=== PATIENT | male | born 1940 | race Caucasian/White ===

== ENCOUNTER 2017-05-04 11:17 | Observation (INO) | payer OTHER, BC ==
--- NOTE | 2017-05-04 11:47 | PDOC ---
History of Present Illness - General History Source: Patient Exam Limitations: No Limitations - History of Present Illness Initial Comments: 05/04/17 12:06 The patient is a 76 year old male, with a significant past medical history of DM , HTN, CAD s/p CABG who presents to the emergency department with L leg pain and swelling for the past day. Patient reports 4/10 leg pain radiating from L calf to L foot. Patient is unable to walk secondary to pain and presents to the ED for further evaluation. Patient denies chest pain, headache or dizziness. Patient denies fever, chills, abdominal pain, nausea, vomit, diarrhea or constipation. Patient denies dysuria, frequency, urgency or hematuria. Patient denies sick contacts or recent travel. Allergies: NKA Past surgical history: Double CABG in 2006 Social history: Former smoker PCP: Dr. Ayon <Judy Aguilera - Last Filed: 05/04/17 15:39> - General History Source: Patient Exam Limitations: No Limitations <Michelle Fraga - Last Filed: 05/04/17 16:18> - General Stated Complaint: LEFT LEG PAIN Time Seen by Provider: 05/04/17 11:46 Past History <Judy Aguilera - Last Filed: 05/04/17 15:39> - Past Medical History Cardiac Disorders: Yes (2006 DOUBLE CABG) Diabetes: Yes HTN: Yes - Surgical History Cardiac Surgery: Yes (CABG 2006) - Suicide/Smoking/Psychosocial Hx Smoking History: Former smoker Have you smoked in the past 12 months: No Information on smoking cessation initiated: No Hx Alcohol Use: No Drug/Substance Use Hx: No Substance Use Type: None <Michelle Fraga - Last Filed: 05/04/17 16:18> - Past Medical History Allergies/Adverse Reactions: Allergies Allergy/AdvReac Type Severity Reaction Status Date / Time No Known Drug Allergies Allergy Verified 04/12/14 13:37 Home Medications: Ambulatory Orders Unobtainable [Unobtainable] 04/12/14 Review of Systems - Review of Systems Able to Perform ROS?: Yes Comments:: 05/04/17 12:11 GENERAL/CONSTITUTIONAL: No: fever, chills, weakness, loss of appetite. HEAD, EYES, EARS, NOSE AND THROAT: No: change in vision, ear pain, discharge, sore throat, throat swelling. CARDIOVASCULAR: No: chest pain, lightheadedness, palpitations, syncope RESPIRATORY: No: cough, shortness of breath, wheezing, hemoptysis, stridor. GASTROINTESTINAL: No: nausea, vomiting, abdominal cramping, diarrhea, rectal bleeding, constipation. GENITOURINARY: No: dysuria, hematuria, frequency, urgency, flank pain. MUSCULOSKELETAL: +L leg pain and swelling. No: back pain, neck pain, joint pain , muscle swelling or pain. SKIN: No: lesions, pallor, rash or easy bruising. NEUROLOGIC: No: headache, vertigo, paresthesias, weakness ENDOCRINE: No: unexplained weight gain or loss HEMATOLOGIC/LYMPHATIC: No: anemia, easy bleeding, swelling nodes <Judy Aguilera - Last Filed: 05/04/17 15:39> *Physical Exam - Vital Signs Last Vital Signs Temp Pulse Resp BP Pulse Ox 98.4 F 70 16 122/62 98 05/04/17 11:37 05/04/17 11:37 05/04/17 11:37 05/04/17 11:37 05/04/17 11:37 - Physical Exam Comments: 05/04/17 12:11 GENERAL: The patient is in no acute distress. HEAD: Normal with no signs of trauma. EYES: PERRLA, EOMI, sclera anicteric, conjunctiva clear. ENT: Ears normal, nares patent, oropharynx clear without exudates. Moist mucous membranes. NECK: Normal range of motion, supple without lymphadenopathy, JVD, or masses. LUNGS: Breath sounds equal, clear to auscultation bilaterally. No wheezes, and no crackles. HEART:Regular rate and rhythm, normal S1 and S2 without murmur, rub or gallop. ABDOMEN: Soft, nontender, normoactive bowel sounds. No guarding, no rebound. EXTREMITIES: Normal range of motion. No clubbing or cyanosis. No erythema. +LLE edematous. +L calf tenderness. NEUROLOGICAL: Cranial nerves II through XII grossly intact. Normal speech. No focal neurological deficits. MUSCULOSKELETAL: Back nontender to palpation, no CVA tenderness SKIN: Warm, Dry, normal turgor, no rashes or lesions noted. <Judy Aguilera - Last Filed: 05/04/17 15:39> - Vital Signs Last Vital Signs Temp Pulse Resp BP Pulse Ox 98.4 F 70 16 122/62 98 05/04/17 11:37 05/04/17 11:37 05/04/17 11:37 05/04/17 11:37 05/04/17 11:37 <Michelle Fraga - Last Filed: 05/04/17 16:18> ED Treatment Course - LABORATORY CBC & Chemistry Diagram: 05/04/17 12:35 05/04/17 12:35 <WillyJudy bashir - Last Filed: 05/04/17 15:39> - LABORATORY CBC & Chemistry Diagram: 05/04/17 12:35 05/04/17 12:35 <Michelle Fraga - Last Filed: 05/04/17 16:18> Medical Decision Making - Medical Decision Making 05/04/17 15:39 Dr. Ayon paged via phone answering service. <Judy Aguilera - Last Filed: 05/04/17 15:39> - Medical Decision Making 05/04/17 13:59 Mr Parker 76 yo M who presents to the ER via EMS s/p complaint of LLE pain Patient states he has had these symptoms for several days. Jb worsened significantly to the point that he is unable to stand on his leg. Patient has no limitations in range of motion of the knee, hip, ankle. The majority of his pain is located in the calf muscle. Patient denies trauma, heavy lifting. Patient denies prior history of DVT. Patient denies fevers, chills. Patient has noticed swelling of this lower extremity. Patient believes that the skin changes are chronic and have been present for some time On examination: Pt is somnolent, arousable to voice Irregularly irregular, no murmur CTA LLE edema (+) erythema noted (+) skin flaking DD: Cellulitis, DVT, pt has a fib, ? arterial embolism Will do labs Will do Duplex Will do Arterial US Pain management Will re assess 05/04/17 16:16 Laboratory Tests 05/04/17 05/04/17 05/04/17 12:35 12:35 12:35 WBC 6.8 Hgb 15.7 Hct 46.9 Plt Count 203 PT with INR 13.30 H INR 1.18 H Sodium 140 Potassium 3.7 Chloride 99 Carbon Dioxide 29 Anion Gap 12 BUN 11 Creatinine 0.7 Random Glucose 172 H Duplex negative Arterial US negative Pt Skin erythematous, pt has pain in calf ? cellulitis Will place on observation Clinical impression: Cellulitis, initial presentation <Michelle Fraga - Last Filed: 05/04/17 16:18> *DC/Admit/Observation/Transfer - Attestations Scribe Attestion: 05/04/17 12:11 Documentation prepared by Judy Aguilera, acting as medical attendant for Michelle Fraga MD <Judy Aguilera - Last Filed: 05/04/17 15:39> - Discharge Dispostion Admit: Yes <Michelle Fraga - Last Filed: 05/04/17 16:18> Diagnosis at time of Disposition: Cellulitis Qualifiers: Site of cellulitis: unspecified site Qualified Code(s): L03.90 - Cellulitis, unspecified - Discharge Dispostion Condition at time of disposition: Stable - Referrals Referrals: Petra Ayon MD [Primary Care Provider] - - Patient Instructions - Post Discharge Activity
[2017-05-04] MEDS ORDERED: METHOCARBAMOL 500 MG TABLET PO ONE (12:02)
[2017-05-04] MEDS ORDERED: IBUPROFEN 600 MG TABLET (FP) PO ONE ×2 (12:02→12:23)
[2017-05-04] MEDS ORDERED: METHOCARBAMOL 500 MG TABLET ONE (12:22)
[2017-05-04 12:47] LABS: EOS % 0.9 % (0-4.5); HEMATOCRIT 46.9 % (35.4-49); HEMOGLOBIN 15.7 GM/dL (11.7-16.9); LYMPH % 17.5 % (8-40); MCHC 33.4 g/dl (32.0-35.9); MEAN CELL VOLUME 83.8 fl (80-96); MEAN PLT VOLUME 9.7 fl (7.5-11.1); MONO % 10.7 % (3.8-10.2); NEUT % 69.9 % (42.8-82.8); PLATELET COUNT 203 K/MM3 (134-434); RDW 14.7 % (11.9-15.9); WHITE BLOOD COUNT 6.8 K/mm3 (4.0-10.0)
[2017-05-04 13:03] LABS: INR 1.18 (0.82-1.09); PROTHROMBIN TIME (PATIENT) 13.3 SEC (9.98-11.88)
[2017-05-04 13:22] LABS: ANION GAP 12 (8-16); BLOOD UREA NITROGEN 11 mg/dL (7-18); CALCIUM 8.3 mg/dL (8.5-10.1); CHLORIDE 99 mmol/L (98-107); CO2 29 mmol/L (21-32); GLUCOSE,RANDOM 172 mg/dL (74-106); POTASSIUM 3.7 mmol/L (3.5-5.1); SODIUM 140 mmol/L (136-145)
[2017-05-04 13:25] LABS: ALK PHOS 113 U/L (45-117); CREATININE 0.7 mg/dL (0.7-1.3); SGOT/AST 21 U/L (15-37); SGPT/ALT 24 U/L (12-78); TOT PROT 6.6 g/dl (6.4-8.2)
[2017-05-04] MEDS ORDERED: CEFAZOLIN 1 GM in DEXTROSE 5%-WATER - 50 ML IVPB ONE (16:17)
[2017-05-04] MEDS ORDERED: CEFAZOLIN 1 GM PUSH 1 GM/10 ML DISP.SYRIN IVPUSH ONE (16:22)
[2017-05-04] MEDS ORDERED: ACETAMINOPHEN 325 MG TABLET (FP) PO ONE (21:00)
[2017-05-04 21:36] VITALS: BMI 29.0
[2017-05-05 10:26] VITALS: BP 137/99; PULSE 76; TEMP 99
--- NOTE | 2017-05-05 10:54 | HP ---
Admitting History and Physical - Primary Care Physician PCP: Petra Ayon - Admission Chief Complaint: left foot pain History of Present Illness: The patient is a 76 year old male, with a significant past medical history of DM , HTN, CAD s/p CABG who presents to the emergency department with L leg pain and swelling for the past day. Patient reports 4/10 leg pain radiating from L calf to L foot. Patient is unable to walk secondary to pain and presents to the ED for further evaluation. Patient denies chest pain, headache or dizziness. Patient denies fever, chills, abdominal pain, nausea, vomit, diarrhea or constipation. Patient denies dysuria, frequency, urgency or hematuria. Patient denies sick contacts or recent travel. Wants to go home, Chronic LLE pain, was worried that his foot didn't look right so came in to the ER. Pedal pulses intact. Chronic discoloration BLLE---> 2/2 PVD? Denies pain at this time. Takes aspirin or Aleve for pain at home. Has never seen orthopedist or had Physical therapy. History Source: Patient Limitations to Obtaining History: No Limitations - Smoking History Smoking history: Former smoker Have you smoked in the past 12 months: No - Alcohol/Substance Use Hx Alcohol Use: No Home Medications - Allergies Allergies/Adverse Reactions: Allergies Allergy/AdvReac Type Severity Reaction Status Date / Time No Known Drug Allergies Allergy Verified 04/12/14 13:37 - Home Medications Home Medications: Ambulatory Orders Unobtainable [Unobtainable] 04/12/14 Physical Examination Vital Signs: Vital Signs Temperature 99 F 05/05/17 09:00 Pulse Rate 76 05/05/17 09:00 Respiratory Rate 20 05/05/17 09:00 Blood Pressure 137/99 05/05/17 09:00 O2 Sat by Pulse Oximetry (%) 98 05/04/17 16:56 Constitutional: Yes: Well Nourished, No Distress, Calm Cardiovascular: Yes: Regular Rate and Rhythm Respiratory: Yes: Regular Gastrointestinal: Yes: Normal Bowel Sounds, Soft Musculoskeletal: Yes: WNL Extremities: Yes: Other (BLLE discoloration 2/2 to PVD) Edema: Yes Edema: LLE: 1+, RLE: 1+ Peripheral Pulses WNL: Yes Neurological: Yes: Alert, Oriented Psychiatric: Yes: Alert, Oriented Labs: CBC, BMP 05/04/17 12:35 05/04/17 12:35 Imaging - Results X-ray: Report Reviewed Ultrasound: Report Reviewed Problem List - Problems (1) Left foot pain Assessment/Plan: -Vascular studies unremarkable -Foot Xray negative -preliminary tibial Xray looks negative -walks with cane -aleve 2 cap BID PRN with food -f/u outpatient with PCP and ortho. -Physical therapy Code(s): M79.672 - PAIN IN LEFT FOOT Assessment/Plan see problem list
--- NOTE | 2017-05-05 11:52 | DS ---
Physical Examination Vital Signs: Vital Signs Temperature 99 F 05/05/17 09:00 Pulse Rate 76 05/05/17 09:00 Respiratory Rate 20 05/05/17 09:00 Blood Pressure 137/99 05/05/17 09:00 O2 Sat by Pulse Oximetry (%) 98 05/04/17 16:56 Constitutional: Yes: Well Nourished, No Distress, Calm Cardiovascular: Yes: Regular Rate and Rhythm Respiratory: Yes: Regular Gastrointestinal: Yes: Normal Bowel Sounds, Soft Musculoskeletal: Yes: Joint Swelling (chronic Left LE swelling) Extremities: Yes: WNL Edema: Yes Edema: LLE: 1+ Peripheral Pulses WNL: Yes Integumentary: Yes: Venous Stasis Changes (BLLE skin discoloration) Neurological: Yes: Alert, Oriented Psychiatric: Yes: Alert, Oriented Labs: CBC, BMP 05/04/17 12:35 05/04/17 12:35 Discharge Summary Reason For Visit: CELLULITIS Current Active Problems Cellulitis (Acute) Hospital Course: The patient is a 76 year old male, with a significant past medical history of DM , HTN, CAD s/p CABG who presents to the emergency department with L leg pain and swelling for the past day. Patient reports 4/10 leg pain radiating from L calf to L foot. Patient is unable to walk secondary to pain and presents to the ED for further evaluation. Patient denies chest pain, headache or dizziness. Patient denies fever, chills, abdominal pain, nausea, vomit, diarrhea or constipation. Patient denies dysuria, frequency, urgency or hematuria. Patient denies sick contacts or recent travel. Upon evaluation venous and arterial, foot Xray was negative. Condition: Stable - Instructions Referrals: Petra Ayon MD [Primary Care Provider] - Disposition: HOME - Home Medications Comprehensive Discharge Medication List: Ambulatory Orders Unobtainable [Unobtainable] 04/12/14
--- NOTE | 2017-05-05 13:45 | CONS ---
PHYSICAL MEDICINE REHABILITATION CONSULTATION DATE OF CONSULTATION: 05/05/2017 REFERRING PHYSICIAN: Dr. Pacheco HISTORY OF PRESENT ILLNESS: The patient is a 76-year-old man who has an extensive past medical history including diabetes, hypertension, coronary artery disease status post coronary artery bypass graft and chronic venous stasis changes in the lower extremities, who was admitted with difficulty walking and pain in the left ankle. Patient states he developed abrupt onset of pain without any trauma. The pain was worse with weightbearing. He underwent duplexes of bilateral lower extremities, which were negative for DVT. He also underwent x-rays of the left foot, which showed calcaneal spurring; bunion formation, 1st MTP, but no acute pathology. No blastic or lytic changes. Patient also underwent blood work in the emergency department. He had a normal CBC, WBC of 16.8, hemoglobin 15.7, and platelet count 203. INR slightly elevated at 1.18, and chemistry showed elevated random glucose 172, low albumin of 3.0, calcium level borderline at 8.3 but corrects to his albumin level. Otherwise, his chemistry was normal. Sodium 140, potassium 3.7, chloride 99, carbon dioxide 29, BUN 11, creatinine 0.7, creatinine clearance greater than 60, AST 21, ALT 24, and alkaline phosphatase 113. Total protein was normal at 6.6. Patient has no new numbness, tingling. No back pain and again no trauma. He notes discoloration and swelling, but this is chronic and appears in both of his lower extremities. PAST MEDICAL AND SURGICAL HISTORY: Diabetes (he is uncertain whether he has diabetic peripheral neuropathy), hypertension, coronary artery disease, coronary artery bypass graft. SOCIAL HISTORY: Former tobacco user. Ambulates with a straight cane. REVIEW OF SYSTEMS: No lightheadedness, dizziness, blurry vision, double vision, chest pain, shortness of breath. He occasionally has numbness and tingling in his upper extremities. No other joint arthralgias. No fever or chills. Again, discoloration which is chronic in both lower extremities and some swelling in both lower extremities which is chronic. No significant weight change. PHYSICAL EXAMINATION: General: Patient is an overweight man seen sitting at the edge of the bed. He is in no acute distress. HEENT: Normocephalic and atraumatic. Extraocular muscles appear intact. Neck: Supple. Extremities: He has dysvascular changes, hyperpigmentation from just below the knee into the ankle and foot. He has some edema distally in the lower extremities, trace to +1. No other generalized rash. Neuromuscular: He is awake, alert, oriented x3. Cranial nerves 2-12 grossly intact. He has fairly good strength and range in the upper extremities with some arthritic changes in the hands, which is not limiting. Slightly diminished sensation, more in a median than ulnar distribution and thenar weakness bilaterally. He also has slightly diminished sensation distally in the feet to light touch and normal more proximally. He has tenderness in the left Achilles tendon, which is focal. None on the right side and no other tenderness in the ankle. Limited range of motion due to some mild discomfort. Good range of motion and strength more proximally. OVERALL IMPRESSION: 1. Gait disorder. 2. Left ankle pain consistent with Achilles tendinopathy. 3. Chronic venous stasis changes in bilateral lower extremities. 4. Rule out diabetic peripheral neuropathy. 5. Numbness and tingling in the upper extremities consistent with carpal tunnel syndrome. 6. History of diabetes. 7. History of hypertension. 8. Coronary artery disease status post coronary artery bypass graft. 9. Elevated body mass index. 10. Former tobacco user. 11. Hypoalbuminemia. PLAN/SUGGESTION: 1. We will have Physical Therapy see the patient prior to discharge if possible to make sure he is stable. 2. I have recommended a heel lift when he gets home or using a high-heel shoe or a boot to take pressure off the Achilles. 3. Would follow up as an outpatient for outpatient physical therapy. 4. Would consider EMG of lower extremities to assess for diabetic peripheral neuropathy. 5. Consider EMG of upper extremities to assess for carpal tunnel syndrome. 6. If positive for carpal tunnel syndrome, would consider night splinting. 7. Could consider anti-inflammatory usually, but he has a history of hypertension and coronary artery disease. Would not recommend any anti-inflammatories. Would stick to Tylenol for pain. Thank you very much for this referral. LUIS ANGEL CANDELARIA M.D. [facility]/[id number]
== END 2017-05-05 15:40 | disposition home health service (06) ==
LOC: JER 11:17 → JERBED 16:18 → J6S 18:55
PROVIDERS: ADMIT Family Medicine; ATTEND Family Medicine
DX: L03.116 Cellulitis of left lower limb (principal); I10 Essential (primary) hypertension; E11.9 Type 2 diabetes mellitus without complications; I25.10 Atherosclerotic heart disease of native coronary artery without angina pectoris; Z95.1 Presence of aortocoronary bypass graft
CPT/HCPCS: 36415; 73590-TC-LT-FY; 73630-TC-LT; 80053; 85025; 85610; 85730; 87040; 93925-TC; 93970-TC; 96365; 97116-GP; 97161-GP; 99283-25; G0378

== ENCOUNTER 2017-05-07 18:02 | Inpatient (IN) | payer OTHER, BC ==
--- NOTE | 2017-05-07 18:50 | PDOC ---
History of Present Illness - General Chief Complaint: Pain, Acute Stated Complaint: LEG PAIN Time Seen by Provider: 05/07/17 18:13 History Source: Patient Exam Limitations: No Limitations - History of Present Illness Initial Comments: 05/07/17 18:47 76 y/o M with PMH asthma, DM, HTN, CAD s/p CABG, ?chronic venous stasis, recent dx for LLE pain (-DVT, - art doppler, was sent home with ortho, PCP follow up) who presents to the ED c/o LLE edema over the past week. As per pt, last week, he noticed increased edema in his L calf. It caused constant pain so severe, that he had trouble ambulating. Over the last three days, he noticed increased erythema in his calf region, as well as dull pain. He denied any spread of erythema, or burning in the region, stating he had just "become more aware of his leg." During this time, he also endorsed blisters, and desquamation near his ankle. Otherwise, pt denies ARGUETA, fever, chills, SOB, abdominal pain, recent infection, or changes in urinary or bowel function. He also denies recent immobilizations, hx clot, recent surgeries. PMH: as above PsxH: s/p CABG (2007) meds: as in chart allergies: NKDA FH: father- lung issues SH: [place] [phone]. Subsequently worked in [employer], [employer] [place] [id number]. Ambulates with a cane at baseline. Smoked cigarettes for 4 years total in s - had smoked 3 packs/day during that time. "Moderate alcohol" intake 1-2 beers /day. Smoked marijuana "intermittently" in past Past History - Past Medical History Allergies/Adverse Reactions: Allergies Allergy/AdvReac Type Severity Reaction Status Date / Time No Known Drug Allergies Allergy Verified 05/07/17 18:17 Home Medications: Ambulatory Orders Albuterol Sulfate Inhaler - [Ventolin Hfa Inhaler -] 2 inh PO Q4H PRN 05/07/17 Amoxicillin/Potassium Clav [Augmentin 875-125 Tablet] 1 each PO DAILY 05/07/17 Apixaban [Eliquis] 5 mg PO DAILY 05/07/17 Duloxetine HCl [Cymbalta] 30 mg PO BID 05/07/17 Empagliflozin [Jardiance] 10 mg PO DAILY 05/07/17 Fluticasone Propionate [Flovent Hfa] 220 mcg IH BID 05/07/17 Furosemide [Lasix] 40 mg PO DAILY 05/07/17 Metoprolol Succinate [Toprol Xl] 50 mg PO DAILY 05/07/17 Tadalafil [Cialis] 5 mg PO PRN 05/07/17 Cardiac Disorders: Yes (2006 DOUBLE CABG) COPD: No Diabetes: Yes HTN: Yes - Surgical History Cardiac Surgery: Yes (CABG 2006) - Immunization History Immunization Up to Date: Yes - Suicide/Smoking/Psychosocial Hx Smoking History: Never smoked Have you smoked in the past 12 months: No Information on smoking cessation initiated: No Hx Alcohol Use: No Drug/Substance Use Hx: No Substance Use Type: None Review of Systems - Review of Systems Able to Perform ROS?: Yes Is the patient limited Swedish proficient: No Musculoskeletal: Yes: Muscle Pain, Other (LLE edema, erythema ) All Other Systems: Reviewed and Negative *Physical Exam - Vital Signs Last Vital Signs Temp Pulse Resp BP Pulse Ox 98.7 F 68 12 122/57 96 05/07/17 18:02 05/07/17 18:23 05/07/17 18:02 05/07/17 18:02 05/07/17 18:23 - Physical Exam General Appearance: Yes: Nourished, Obese HEENT: positive: EOMI, ADRIENNE Neck: positive: Supple Respiratory/Chest: positive: Lungs Clear, Other (poor inspiratory effort ) Cardiovascular: positive: Regular Rhythm, Regular Rate, S1, S2 Vascular Pulses: Dorsalis-Pedis (R): 1+, Doralis-Pedis (L): 1+ Gastrointestinal/Abdominal: positive: Normal Bowel Sounds, Soft Extremity: positive: Other ((+) LLE edema and erythema - calf, with desquamation near ankle) Integumentary: positive: Normal Color Neurologic: positive: heel seat trimmer II-XII NML intact ED Treatment Course - LABORATORY CBC & Chemistry Diagram: 05/07/17 19:40 05/07/17 19:40 Medical Decision Making - Medical Decision Making 05/07/17 19:49 76 y/o M with PMH asthma, DM, HTN, CAD s/p CABG, ?chronic venous stasis, recent dx for LLE pain (-DVT, - art doppler, was sent home with ortho, PCP follow up) who presents to the ED c/o LLE edema over the past week. Pt with likely cellulitis - will give 1 dose vancomycin (1500 mg ) x 1 d/t loading dose. Will also do general labs CBC, CMP, and repeat duplex LLE as increased edema and erythema, difficulty with weight bearing. Will also send blood cx. Pt currently afebrile. Will reassess once labs and tests return 05/07/17 20:40 without white count elevated BG - will do ISS 05/07/17 20:41 will also give boosterix d/t R knee abrasion 05/07/17 20:42 duplex pending 05/07/17 21:09 for med-surg obs Dr. Montalvo *DC/Admit/Observation/Transfer Diagnosis at time of Disposition: Cellulitis Qualifiers: Site of cellulitis: other site Qualified Code(s): L03.818 - Cellulitis of other sites - Discharge Dispostion Condition at time of disposition: Guarded Admit: Yes - Referrals Referrals: Petra Ayon MD [Primary Care Provider] - - Patient Instructions - Post Discharge Activity
[2017-05-07] MEDS ORDERED: DIPHTH,PERTUSS(ACELL),TET 0.5 ML DISP.SYRIN IM ONE (19:34)
[2017-05-07] MEDS ORDERED: VANCOMYCIN 1,500 MG in DEXTROSE 5%-WATER - 500 ML IVPB ONE (19:35)
--- NOTE | 2017-05-07 19:42 | PDOC ---
Attending Attestation - Resident Resident Name: MilviaRowena - ED Attending Attestation I have performed the following: I have examined & evaluated the patient, The case was reviewed & discussed with the resident, I agree w/resident's findings & plan, Exceptions are as noted - Medical Decision Making 05/07/17 19:40 I, Dr. Amber Gillis, DO, attest that this document has been prepared under my direction and personally reviewed by me in its entirety. I further attest, that it accurately reflects all work, treatment, procedures and medical decision -making performed by me. 05/07/17 19:40 76yo male with LLE redness/tenderness/warmth -will repeat ultrasound, however suspect cellulitis with desquamation of skin -will send labs, cultures -will start vanco given hx of dm -will need admission -discussed plan with the patient who agrees with the plan 05/07/17 21:[address] Montalvo who accepts pt to service <Amber Gillis - Last Filed: 05/07/17 21:18> - HPI HPI: 05/08/17 01:23 Patient is a 76 year old male with a significant past medical history of Asthma , Chronic Venous stasis, DM, HTN, CAD s/p CABG, who presents to the ED with complaints of lower left extremity pain that began earlier this week. Patient reports experiencing left lower leg pain as well as associated redness prompting him to come in to the ED for further evaluation. He reports getting a doppler and arterial doppler on his left lower leg with both test results being negative. Patient reports experiencing increased edema in his lower extremities as well a dull constant pain in his left leg. He reports being unable to walk secondary to pain, as well as increased erythema of his legs over the last 3 days. Denies chest pain, Sob. Denies nausea, vomiting. Denies dysuria, hematuria. Denies constipation, diarrhea. Denies trauma to affected area. Denies any other symptoms. Allergies: None Social history: Surgical history: PMD: Dr. Ayon - Physicial Exam PE: 05/08/17 01:23 GENERAL: Awake, alert, and fully oriented, in no acute distress HEAD: No signs of trauma EYES: PERRLA, EOMI, sclera anicteric, conjunctiva clear ENT: Auricles normal inspection, hearing grossly normal, nares patent, oropharynx clear without exudates. Moist mucosa NECK: Normal ROM, supple, no lymphadenopathy, JVD, or masses LUNGS: Breath sounds equal, clear to auscultation bilaterally. No wheezes, and no crackles HEART: Regular rate and rhythm, normal S1 and S2, no murmurs, rubs or gallops ABDOMEN: Soft, nontender, normoactive bowel sounds. No guarding, no rebound. No masses EXTREMITIES: +Left Knee to toes red, swollen, erythematous with 2+ pitting edema. +Hot to touch. +Desquamation of lower leg and foot. + pulses intact. +Right knee had two abrasions No active bleeding Normal range of motion, no edema. No cords, or tenderness NEUROLOGICAL: Cranial nerves II through XII grossly intact. Normal speech, SKIN: Warm, Dry, no rashes or lesions noted. - Medical Decision Making 05/08/17 01:23 Documentation prepared by Chele Sorto, acting as medical technologist chemistry for Amber Gillis DO, MD/. <Chele Sorto - Last Filed: 05/08/17 01:23> Heart Score/ECG Review - ECG Intrepretation Comment:: 05/07/17 21:19 sinus tach at 105, lbbb, l axis, abnl ekg <Amber Gillis - Last Filed: 05/07/17 21:18>
[2017-05-07 19:52] LABS: BASO % 0.9 % (0-2.0); EOS % 0.7 % (0-4.5); HEMOGLOBIN 15.3 GM/dL (11.7-16.9); LYMPH % 14.5 % (8-40); MCH 27.5 pg (25.7-33.7); MCHC 32.6 g/dl (32.0-35.9); MEAN CELL VOLUME 84.3 fl (80-96); MEAN PLT VOLUME 10.6 fl (7.5-11.1); MONO % 8.1 % (3.8-10.2); NEUT % 75.8 % (42.8-82.8); PLATELET COUNT 193 K/MM3 (134-434); RBC 5.57 M/mm3 (4.00-5.60); RDW 15.3 % (11.9-15.9); WHITE BLOOD COUNT 7.7 K/mm3 (4.0-10.0)
[2017-05-07 20:21] LABS: ALBUMIN 3.1 g/dl (3.4-5.0); ALK PHOS 121 U/L (45-117); ANION GAP 9 (8-16); BILIRUBIN,TOTAL 0.8 mg/dL (0.2-1.0); BLOOD UREA NITROGEN 14 mg/dL (7-18); CALCIUM 8.4 mg/dL (8.5-10.1); CHLORIDE 100 mmol/L (98-107); CO2 27 mmol/L (21-32); CREATININE 0.9 mg/dL (0.7-1.3); GLUCOSE,RANDOM 264 mg/dL (74-106); SGPT/ALT 32 U/L (12-78); SODIUM 136 mmol/L (136-145); TOT PROT 6.5 g/dl (6.4-8.2)
[2017-05-07 20:22] LABS: POTASSIUM 4.5 mmol/L (3.5-5.1); SGOT/AST 30 U/L (15-37)
[2017-05-07 20:45] LABS: PLATELET ESTIMATE ADEQUATE
[2017-05-07] MEDS: INSULIN SLIDING SCALE (NOVOLOG) 1 VIAL SQ SCH (22:19)
[2017-05-07] MEDS ORDERED: INSULIN (NOVOLOG) ASPART 100 UNITS/ML 10ML VIAL ONE (22:49)
--- NOTE | 2017-05-07 23:42 | HP ---
CHIEF COMPLAINT:LLE pain and swelling x4 days PCP: HISTORY OF PRESENT ILLNESS: Pt is a 76 y/o M with PMHx asthma, DM, HTN, CAD s/p CABG, chronic venous stasis, recently seen in ED 05/07/ LLE pain (-DVT, - art doppler, to see ortho, PCP follow up, with augmentin-never picked up). Now presenting with worsening LLE pain and swelling. Inability to bear weight on LLE because of pain although pt describes the pain sensation as 2/10, "troubling ", absent pins and needle sensation. He denies fevers, chills, trauma, discharge , bug or animal bites. Pt reports a previous L ankle blister about a week ago that disappeared on its own followed by the pain then swelling. Pt denies loss of sensation or unstable gait, walks mostly without but occasionally with a cane. Lives at home with independent ADLs and cares for disabled . For the past week however has been unable to bear weight on the leg to tack picker the antibiotic last prescribed. Pt says his sugar is controlled between 120-150 on 80u long-acting insulin (could not be verified). Last A1c last year said to be 7. Pt denies pins and needles sensation, chest pain, cough. He has occasional SOB, but no PND, or orthopnea. No dysuria or change in bowel habit. He does not follow with a skid adzer. His last eye follow up was said to be last year. ER course was notable for: (1) EKG- sinus rhythm, 1st degree AV block with occ PVCs, LAD, LBBB (2) Vanco 2g (3) [id number], CMP, CBC, bld cx-pending Recent Travel: None PAST MEDICAL HISTORY: asthma, DM, HTN, CAD s/p CABG chronic venous stasis PAST SURGICAL HISTORY: CABG- Social History: Smoking: Former-stopped over 30 years ago Alcohol: Drugs: Family History: Allergies No Known Drug Allergies Allergy (Verified 05/07/17 18:17) HOME MEDICATIONS: Home Medications Medication Instructions Recorded Albuterol Sulfate Inhaler - 2 inh PO Q4H PRN 05/07/17 [Ventolin Hfa Inhaler -] Amoxicillin/Potassium Clav 1 each PO DAILY 05/07/17 [Augmentin 875-125 Tablet] Apixaban [Eliquis] 5 mg PO DAILY 05/07/17 Duloxetine HCl [Cymbalta] 30 mg PO BID 05/07/17 Empagliflozin [Jardiance] 10 mg PO DAILY 05/07/17 Fluticasone Propionate [Flovent 220 mcg IH BID 05/07/17 Hfa] Furosemide [Lasix] 40 mg PO DAILY 05/07/17 Metoprolol Succinate [Toprol Xl] 50 mg PO DAILY 05/07/17 Tadalafil [Cialis] 5 mg PO PRN 05/07/17 REVIEW OF SYSTEMS CONSTITUTIONAL: Absent: fever, chills, diaphoresis, generalized weakness, malaise, loss of appetite, weight change HEENT: Absent: rhinorrhea, nasal congestion, throat pain, throat swelling, difficulty swallowing, mouth swelling, ear pain, eye pain, visual changes CARDIOVASCULAR: Absent: chest pain, syncope, palpitations, irregular heart rate, lightheadedness , peripheral edema RESPIRATORY: Absent: cough, shortness of breath, dyspnea with exertion, orthopnea, wheezing, stridor, hemoptysis GASTROINTESTINAL: Absent: abdominal pain, abdominal distension, nausea, vomiting, diarrhea, constipation, melena, hematochezia GENITOURINARY: Absent: dysuria, frequency, urgency, hesitancy, hematuria, flank pain, genital pain MUSCULOSKELETAL: Absent: myalgia, arthralgia, joint swelling, back pain, neck pain SKIN: Absent: rash, itching, pallor HEMATOLOGIC/IMMUNOLOGIC: Absent: easy bleeding, easy bruising, lymphadenopathy, frequent infections ENDOCRINE: Absent: unexplained weight gain, unexplained weight loss, heat intolerance, cold intolerance NEUROLOGIC: Absent: headache, focal weakness or paresthesias, dizziness, unsteady gait, seizure, mental status changes, bladder or bowel incontinence PSYCHIATRIC: Absent: anxiety, depression, suicidal or homicidal ideation, hallucinations. PHYSICAL EXAMINATION Vital Signs - 24 hr 05/07/17 05/07/17 05/07/17 18:02 18:23 20:15 Temperature 98.7 F Pulse Rate 98 H 68 Respiratory 12 Rate Blood Pressure 122/57 O2 Sat by Pulse 98 96 97 Oximetry (%) GENERAL: Obese, Awake, alert, and fully oriented, in no acute distress. HEAD: Normal with no signs of trauma. EYES: Pupils equal, round and reactive to light, extraocular movements intact, sclera anicteric, conjunctiva clear. EARS, NOSE, THROAT: Ears normal, nares patent, oropharynx clear without exudates. Moist mucous membranes. NECK: Normal range of motion, supple without lymphadenopathy, JVD, or masses. LUNGS: Stenotomy scar mid chest. Breath sounds equal, clear to auscultation bilaterally. No wheezes, and no crackles. HEART: Regular rate and rhythm, normal S1 and S2 without murmur, rub or gallop. ABDOMEN: Soft, nontender, obese, normoactive bowel sounds, no guarding, no rebound, no masses. No hepatomegaly or splenomegaly. MUSCULOSKELETAL: Able to lift all limbs against gravity. Normal tone. Altered touch sensation R>L LE (unable to discriminate actual toes touched) UPPER EXTREMITIES: 2+ pulses, warm, well-perfused. No cyanosis. No clubbing. No peripheral edema. LOWER EXTREMITIES: 2+ DP pulses bilaterally, warm, well-perfused. Bilateral peripheral edema. Dry scaly skin on both LE. R Knee scrape. LLE-Sloughing old dry skin. Mild erythema and slightly increased warmth from ankle to calf. Negative Nakul's sign. NEUROLOGICAL: No facial droop, able to move all limbs. Normal speech. Gait not observed. PSYCHIATRIC: Cooperative. Good eye contact. Laboratory Results - last 24 hr 05/07/17 05/07/17 19:40 19:40 WBC 7.7 RBC 5.57 Hgb 15.3 Hct 47.0 MCV 84.3 MCH 27.5 MCHC 32.6 RDW 15.3 Plt Count 193 MPV 10.6 Neutrophils % 75.8 Lymphocytes % 14.5 Monocytes % 8.1 Eosinophils % 0.7 Basophils % 0.9 Platelet Estimate Adequate Platelet Comment Sodium 136 Potassium 4.5 D Chloride 100 Carbon Dioxide 27 Anion Gap 9 BUN 14 D Creatinine 0.9 D Creat Clearance w eGFR > 60 Random Glucose 264 H D Calcium 8.4 L Total Bilirubin 0.8 AST 30 D ALT 32 D Alkaline Phosphatase 121 H Total Protein 6.5 Albumin 3.1 L ASSESSMENT/PLAN: Pt is a 76 y/o M with PMHx asthma, DM, HTN, CAD s/p CABG, chronic venous stasis , recently seen in ED 05/07/ LLE pain, now presenting with worsening LLE pain and swelling LLE pain and swelling: R/O early LLE cellulitis in back ground of chronic venous stasis R/o DVT Extremely dry skin Altered sensation Hyperglycemia Received vancomycin 2g in ED, cont ID consult- Add ceftriaxone 2g daily Production Honing 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 Operator consult- Dr Oconnell Diabetic education Skin moisturizer-Eucerin Did not tack picker last prescribed augmentin Duplex LLE Leg elevation Pending bld cx CBC DM with hyperglycemia: ISS-ACHS BGM-ACHS HgbA1c Verify home meds Diabetes education Diabetes foot care Bilateral Pedal edema: R/O HF Unclear hx of SOB Hx of CABG, poor follow up hx CXR ECHO Cardiology consult SOB: Hx of asthma Ventolin inh Oxygen as needed- 2L NC R/O HF HTN: Home meds difficult to confirm Likely toprol 50mg (1/2 tab daily) Lisinopril / HCTz- 20/12.5 CAD s/p CABG: ASA 81 mg daily Eliquis 5mg daily Lipid panel Atorvastatin 40mg PO HS FEN: No fluids indicated at this time Monitor lytes and replete as needed Sodium restricted diet PPX: Eliquis 5mg daily Dispo: Tele Visit type - Emergency Visit Emergency Visit: Yes ED Registration Date: 05/07/17 Care time: The patient presented to the Emergency Department on the above date and was hospitalized for further evaluation of their emergent condition. - New Patient This patient is new to me today: Yes Date on this admission: 05/09/17 - Critical Care Critical Care patient: No Hospitalist Screening - Colonoscopy Questionnaire Colonoscopy Questionnaire: Colonoscopy Questionnaire - Patient: 50 - 75 years old and never had a screening colonoscopy: Yes History of colon or rectal polyps, or CA: Unknown History of IBD, Crohn's disease or UC: Unknown History of abdominal radiation therapy as a child: Unknown - Relative: 1 with colon or rectal CA, or polyps at age 60 or younger: Unknown Colon or rectal CA diagnosed at age 45 or younger: Unknown Multiple relatives with colon or rectal CA: Unknown - Outcome: Screening Result: Positive Screen
--- NOTE | 2017-05-07 23:50 | PN ---
Teaching Attending Note Name of Resident: Arely Judge ATTENDING PHYSICIAN STATEMENT I saw and evaluated the patient. Chart , data reviewed. I reviewed the resident's note and discussed the case with the resident. I agree with the resident's findings and plan as documented. SUBJECTIVE: 76 y/o M with PMHx asthma, uncontrolled DM, HTN, CAD s/p CABG, chronic venous stasis, recently seen in ED 05/07/ LLE pain and dvt was r/o by doppler U/S. Patient was prescribed oral antibiotic which he did not take. Returns now with about 2 days of lower ext erythema more so involving left lower ext. He reports some scratches on his legs. No insect or animal bites. No blunt trauma. Unable to ambulate currently. Patient states his FS is controlled at home however, his glucose in ER was 264. In ER, blood cultures were drawn and he received vancomycin IV. OBJECTIVE: b/l Last Vital Signs Temp Pulse Resp BP Pulse Ox 98.7 F 68 12 122/57 97 05/07/17 18:02 05/07/17 18:23 05/07/17 18:02 05/07/17 18:02 05/07/17 20:15 general -nad, aoaox3, comfortable heent- at, nc, moist oral mucosa neck -no jvd noted cv-s1+s2+ rrr chest- cta b/l abdomen -obese, soft, nt ext -lower extremity pedal edema 2+ b/l Skin- dry, flaky skin on lower ext b/l, erythema L>R, cellulitis superimposed on venous stasis changes, sensation to feet on gross touch examination Abnormal Lab Results 05/07/17 19:40 Random Glucose 264 H D Calcium 8.4 L Alkaline Phosphatase 121 H Albumin 3.1 L ASSESSMENT AND PLAN: #76yo man with uncontrolled DM and 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 -blood cultures x2 -vancomycin 1.5g iv q12hrs -ceftriaxone 2g IV q24hrs -lower ext duplex to r/o dvt -ID consult for antibiotic approval -leg elevation b/l -compression stockings -skin moisturizer -podiatry evaluation -bed rest, fall precautions -PT evaluation #Uncontrolled DM -tight insulin sliding scale -basal insulin -send a1c and lipid panel -microalbumin in urine -childbirth educator -ASA -statin -diabetic diet #CAD - s/p CABG, now asymptomatic -echo (r/o chf as patient has pedal edema b/l) -EKG -ASA -DVT ppx -heparin sc
[2017-05-08 01:20] VITALS: BMI 30.6
[2017-05-08] MEDS: DULoxetine HCL 30 MG CAPSULE.DR (FP) PO SCH ×3 (01:36→21:04)
[2017-05-08] MEDS ORDERED: INSULIN (NOVOLOG) ASPART 100 UNITS/ML 10ML VIAL ONE (05:48)
[2017-05-08] MEDS: INSULIN SLIDING SCALE (NOVOLOG) 1 VIAL SQ SCH ×4 (06:12→21:05)
[2017-05-08 07:26] LABS: EOS % 1.4 % (0-4.5); HEMATOCRIT 42.5 % (35.4-49); HEMOGLOBIN 14.3 GM/dL (11.7-16.9); LYMPH % 20.3 % (8-40); MCH 28.1 pg (25.7-33.7); MCHC 33.6 g/dl (32.0-35.9); MEAN CELL VOLUME 83.7 fl (80-96); MEAN PLT VOLUME 10.7 fl (7.5-11.1); MONO % 7.9 % (3.8-10.2); NEUT % 69.4 % (42.8-82.8); PLATELET COUNT 180 K/MM3 (134-434); RBC 5.07 M/mm3 (4.00-5.60); RDW 15.2 % (11.9-15.9); WHITE BLOOD COUNT 7.9 K/mm3 (4.0-10.0)
[2017-05-08 08:04] LABS: ALBUMIN 2.7 g/dl (3.4-5.0); ALK PHOS 108 U/L (45-117); ANION GAP 12 (8-16); BILIRUBIN,TOTAL 1.1 mg/dL (0.2-1.0); BLOOD UREA NITROGEN 11 mg/dL (7-18); CALCIUM 7.9 mg/dL (8.5-10.1); CHLORIDE 103 mmol/L (98-107); CO2 23 mmol/L (21-32); CREATININE 0.6 mg/dL (0.7-1.3); GLUCOSE,RANDOM 101 mg/dL (74-106); PHOSPHOROUS 2.4 mg/dL (2.5-4.9); SGPT/ALT 31 U/L (12-78); SODIUM 138 mmol/L (136-145); TOT PROT 5.8 g/dl (6.4-8.2)
[2017-05-08 08:18] LABS: MAGNESIUM 1.6 mg/dL (1.8-2.4); POTASSIUM 3.8 mmol/L (3.5-5.1); SGOT/AST 35 U/L (15-37)
[2017-05-08 08:24] LABS: INR 1.25 (0.82-1.09); PROTHROMBIN TIME (PATIENT) 14.1 SEC (9.98-11.88)
--- NOTE | 2017-05-08 08:32 | PN ---
Progress Note, Physician History of Present Illness: PAIN OF THE LE - Current Medication List Current Medications: Active Medications Albuterol Sulfate (Ventolin Hfa Inhaler -) 2 puff IH Q4H PRN PRN Reason: ASTHMA Apixaban (Eliquis -) 5 mg PO DAILY [facility] Duloxetine HCl (Cymbalta -) 30 mg PO BID [facility] Last Admin: 05/08/17 01:36 Dose: Not Given Ceftriaxone Sodium 2 gm/ (Dextrose) 100 mls @ 200 mls/hr IVPB DAILY [facility] Insulin Aspart (Novolog Vial Sliding Scale -) 1 vial SQ ACHS [facility] PRN Reason: Protocol Last Admin: 05/08/17 06:12 Dose: Not Given Mometasone Furoate (Asmanex 220mcg -) 1 puff IH HS [facility] Multi-Ingredient Lotion (Eucerin (Small Jar) -) 1 applic TP DAILY [facility] - Objective Vital Signs: Vital Signs Temperature 98.0 F 05/08/17 06:00 Pulse Rate 90 05/08/17 06:00 Respiratory Rate 17 05/08/17 06:33 Blood Pressure 119/62 05/08/17 06:00 O2 Sat by Pulse Oximetry (%) 97 05/08/17 06:33 Cardiovascular: Yes: Regular Rate and Rhythm Respiratory: Yes: Regular, CTA Bilaterally Gastrointestinal: Yes: Normal Bowel Sounds, Soft Extremities: Yes: Calf Tenderness Edema: Yes Edema: LLE: 2+, RLE: Trace Integumentary: Yes: Erythema, Venous Stasis Changes Labs: CBC, BMP 05/08/17 06:30 05/08/17 06:30 INR, PTT INR 1.25 (0.82-1.09) H 05/08/17 07:30 Problem List - Problems (1) Cellulitis Assessment/Plan: IV ABX ID CONSULT Code(s): L03.90 - CELLULITIS, UNSPECIFIED Qualifiers: Site of cellulitis: other site Qualified Code(s): L03.818 - Cellulitis of other sites (2) Left foot pain Assessment/Plan: ABOVE R/O DVT ORTHO URIC ACID DUPLEX Code(s): M79.672 - PAIN IN LEFT FOOT (3) COPD (chronic obstructive pulmonary disease) Assessment/Plan: NEBS Code(s): J44.9 - CHRONIC OBSTRUCTIVE PULMONARY DISEASE, UNSPECIFIED
--- NOTE | 2017-05-08 08:54 | CONSULT ---
Consult - text type - Consultation Consultation Note: Podiatry Consultation: Pleasant 76 year old DM M presents with L leg redness/swelling x 1 week. Patient denies any injury. He does note tenderness to the calf. Denies F/V/N/C /SOB/CP. AFebrile, VSS. PMHx: DM, HTN, asthma, CAD s/p CABG, venous stasis Meds: noted ALL: NKMA JOSEFINA: L foot: pedal pulses 1/4, TG warm-warmer, CFT brisk to all toes. There is fixed erythema from the dorsal midfoot to the lower leg. There is venous stasis changes to the lower leg. There is tenderness on compression of calf musculature. There is no purulent drainage, no open wounds, no ischemic changes , no fluctuance. Imp: 76 year old DM M with cellulitis and venous stasis 1. IV abx 2. Doppler LLE rule out DVT 3. Encourage leg elevation 4. If does not get better, can image the foot/lower leg. Thank you for the courtesy of the consultation. Tamiko Ramos DPM
[2017-05-08] MEDS ORDERED: APIXABAN 5 MG TABLET PO SCH (10:00)
[2017-05-08] MEDS ORDERED: CEFTRIAXONE 2 GM in DEXTROSE 5%-WATER - 100 ML IVPB SCH (10:00)
--- NOTE | 2017-05-08 10:38 | CON.ORTH ---
Consult Reason for Consultation:: left ankle pain - Alcohol/Substance Use Hx Alcohol Use: No - Smoking History Smoking history: Never smoked Have you smoked in the past 12 months: No Home Medications - Allergies Allergies/Adverse Reactions: Allergies Allergy/AdvReac Type Severity Reaction Status Date / Time No Known Drug Allergies Allergy Verified 05/07/17 18:17 - Home Medications Home Medications: Ambulatory Orders Albuterol Sulfate Inhaler - [Ventolin Hfa Inhaler -] 2 inh PO Q4H PRN 05/07/17 Amoxicillin/Potassium Clav [Augmentin 875-125 Tablet] 1 each PO DAILY 05/07/17 Apixaban [Eliquis] 5 mg PO DAILY 05/07/17 Duloxetine HCl [Cymbalta] 30 mg PO BID 05/07/17 Empagliflozin [Jardiance] 10 mg PO DAILY 05/07/17 Fluticasone Propionate [Flovent Hfa] 220 mcg IH BID 05/07/17 Furosemide [Lasix] 40 mg PO DAILY 05/07/17 Metoprolol Succinate [Toprol Xl] 50 mg PO DAILY 05/07/17 Tadalafil [Cialis] 5 mg PO PRN 05/07/17 Physical Exam for Ortho Vital Signs: Vital Signs Temperature 98.0 F 05/08/17 06:00 Pulse Rate 90 05/08/17 06:00 Respiratory Rate 17 05/08/17 06:33 Blood Pressure 119/62 05/08/17 06:00 O2 Sat by Pulse Oximetry (%) 97 05/08/17 06:33 Labs: CBC, BMP 05/08/17 06:30 05/08/17 06:30 INR, PTT INR 1.25 (0.82-1.09) H 05/08/17 07:30 - Lower Extremity Ankle: Yes: Left, Erythema, Pain, Swelling, Tenderness, Other (small ulceration ant tib, no drainage noted, evidence of venous stasis, nvi) Imaging - Results X-ray: Report Reviewed, Image Reviewed Assessment/Plan 76 y/o M with PMHx asthma, DM, HTN, CAD s/p CABG, chronic venous stasis, recently seen in ED 05/04/17 LLE pain (-DVT, - art doppler, to see ortho, PCP follow up, with augmentin-never picked up). Now presenting with worsening pain and swelling. Inability to bear weight on LLE because of pain although pt describes the pain sensation as 2/10, trobbling, absent pins and needle sensation. He denies fevers, chills, trauma, discharge, bug or animal bites. Pt reports a previous L ankle blister about a week ago that disappeared on its own followed by the pain then swelling.Pt denies loss of sensation or unstable gait, walks mostly without but occasionally with a cane. Lives at home with independent ADLs and cares for disabled . For the past week however has been unable to bear weight on the leg to supervisor opening and picking the antibiotic last prescribed. Pt says his sugar is controlled between 120-150 on 80u long-acting insulin (could not be verified). Last A1c last year said to be 7. Pt denies pins and needles sensation, chest pain, cough. He has occassional SOB, but no PND, or orthopnea. No dysuria or change in bowel habit. a/p - left LE cellulitis, venous stasis Abx as per ID consider vascular consult wbat elevation nothing to do orthopedically d/w Dr. Borja
--- NOTE | 2017-05-08 10:53 | PN ---
Progress Note (short form) - Note Progress Note: ID consult dictated cellulitis venous stasis no history of resistna organisms no recent antibioics no open ulcers or abscesses no fevers can treat with cefazolin Problem List - Problems (1) Cellulitis Code(s): L03.90 - CELLULITIS, UNSPECIFIED Qualifiers: Site of cellulitis: other site Qualified Code(s): L03.818 - Cellulitis of other sites
--- NOTE | 2017-05-08 11:19 | EKG ---
Test Reason : Blood Pressure : / mmHG Vent. Rate : 105 BPM Atrial Rate : 115 BPM P-R Int : 000 ms QRS Dur : 128 ms QT Int : 364 ms P-R-T Axes : 000 -35 090 degrees QTc Int : 481 ms SINUS TACHYCARDIA LEFT AXIS DEVIATION LEFT BUNDLE BRANCH BLOCK ABNORMAL ECG NO PREVIOUS ECGS AVAILABLE Confirmed by FAWAD HOGAN MD ([id number]) on 05/08/2017 11:19:02 AM Referred By: Confirmed By:FAWAD HOGAN MD
--- NOTE | 2017-05-08 11:20 | EKG ---
Test Reason : Blood Pressure : / mmHG Vent. Rate : 105 BPM Atrial Rate : 104 BPM P-R Int : 000 ms QRS Dur : 126 ms QT Int : 362 ms P-R-T Axes : 000 -36 085 degrees QTc Int : 478 ms POOR DATA QUALITY, INTERPRETATION MAY BE ADVERSELY AFFECTED UNDETERMINED RHYTHM LEFT AXIS DEVIATION NON-SPECIFIC INTRA-VENTRICULAR CONDUCTION BLOCK ABNORMAL ECG WHEN COMPARED WITH ECG OF 07-MAY-2017 18:45, CURRENT UNDETERMINED RHYTHM PRECLUDES RHYTHM COMPARISON, NEEDS REVIEW NON-SPECIFIC INTRA-VENTRICULAR CONDUCTION BLOCK HAS REPLACED LEFT BUNDLE BRANCH BLOCK Confirmed by FAWAD HOGAN MD ([id number]) on 05/08/2017 11:19:35 AM Referred By: Confirmed By:FAWAD HOGAN MD
--- NOTE | 2017-05-08 11:21 | EKG ---
Test Reason : Blood Pressure : / mmHG Vent. Rate : 093 BPM Atrial Rate : 093 BPM P-R Int : 170 ms QRS Dur : 130 ms QT Int : 384 ms P-R-T Axes : 069 -34 089 degrees QTc Int : 477 ms ATRIAL TACHYCARDIA LEFT AXIS DEVIATION LEFT BUNDLE BRANCH BLOCK ABNORMAL ECG WHEN COMPARED WITH ECG OF 07-MAY-2017 22:55, PREVIOUS ECG HAS UNDETERMINED RHYTHM, NEEDS REVIEW LEFT BUNDLE BRANCH BLOCK HAS REPLACED NON-SPECIFIC INTRA-VENTRICULAR CONDUCTION BLOCK Confirmed by EDISON BLANCO, FAWAD ([id number]) on 05/08/2017 11:20:30 AM Referred By: Confirmed By:FAWAD HOGAN MD
--- NOTE | 2017-05-08 11:21 | EKG ---
Test Reason : Blood Pressure : / mmHG Vent. Rate : 114 BPM Atrial Rate : 127 BPM P-R Int : 000 ms QRS Dur : 124 ms QT Int : 378 ms P-R-T Axes : 000 -43 119 degrees QTc Int : 521 ms ATRIAL TACHYCARDIA with frequent PREMATURE VENTRICULAR COMPLEXES LEFT AXIS DEVIATION NON-SPECIFIC INTRA-VENTRICULAR CONDUCTION DELAY ABNORMAL QRS-T ANGLE, CONSIDER PRIMARY T WAVE ABNORMALITY ABNORMAL ECG WHEN COMPARED WITH ECG OF 08-MAY-2017 00:30, WIDE QRS RHYTHM HAS REPLACED SINUS RHYTHM Confirmed by EDISON BLANCO, FAWAD ([id number]) on 05/08/2017 11:21:08 AM Referred By: Confirmed By:FAWAD HOGAN MD
[2017-05-08] MEDS: CEFAZOLIN 2 GM/D5W 2 GM/50 ML ML IVPB SCH ×2 (11:57→17:15)
[2017-05-08] MEDS: APIXABAN 5 MG TABLET PO SCH ×2 (11:57→21:04)
[2017-05-08 12:36] LABS: URIC ACID 5.6 mg/dL (2.6-7.2)
--- NOTE | 2017-05-08 13:31 | CON.CARD ---
Consult Consult Specialty:: cardiology Referred by:: Katia Reason for Consultation:: Paroxysmal atrial fibrillation - History of Present Illness Chief Complaint: Leg pain and cellulitis. History of Present Illness: The patient is a 76-year-old man, with a history of diabetes, hypertension, hyperlipidemia, asthma, paroxysmal atrial fibrillation on Eliquis, coronary artery disease, status post CABG, chronic venous stasis, now admitted with leg pains and cellulitis. The patient denies chest pains, shortness of breath, palpitations. On admission the patient was in atrial fibrillation. Spontaneously converted to sinus rhythm. The echocardiogram was a technically difficult study. It showed moderate to severe global left ventricular systolic dysfunction, with severe mitral valve regurgitation and moderate tricuspid valve regurgitation. - History Source History Provided By: Patient, Medical Record Limitations to Obtaining History: No Limitations - Past Medical History Cardio/Vascular: Yes: AFIB, CAD, CHF, HTN, Hyperlipdemia, Mitral Insufficiency Pulmonary: Yes: Asthma, COPD - Alcohol/Substance Use Hx Alcohol Use: No - Smoking History Smoking history: Never smoked Have you smoked in the past 12 months: No Home Medications - Allergies Allergies/Adverse Reactions: Allergies Allergy/AdvReac Type Severity Reaction Status Date / Time No Known Drug Allergies Allergy Verified 05/07/17 18:17 - Home Medications Home Medications: Ambulatory Orders Albuterol Sulfate Inhaler - [Ventolin Hfa Inhaler -] 2 inh PO Q4H PRN 05/07/17 Amoxicillin/Potassium Clav [Augmentin 875-125 Tablet] 1 each PO DAILY 05/07/17 Apixaban [Eliquis] 5 mg PO DAILY 05/07/17 Duloxetine HCl [Cymbalta] 30 mg PO BID 05/07/17 Empagliflozin [Jardiance] 10 mg PO DAILY 05/07/17 Fluticasone Propionate [Flovent Hfa] 220 mcg IH BID 05/07/17 Furosemide [Lasix] 40 mg PO DAILY 05/07/17 Metoprolol Succinate [Toprol Xl] 50 mg PO DAILY 05/07/17 Tadalafil [Cialis] 5 mg PO PRN 05/07/17 Review of Systems - Review of Systems Constitutional: reports: No Symptoms Eyes: reports: No Symptoms HENT: reports: No Symptoms Neck: reports: No Symptoms Cardiovascular: reports: No Symptoms Respiratory: reports: No Symptoms Gastrointestinal: reports: No Symptoms Genitourinary: reports: No Symptoms Breasts: reports: No Symptoms Reported Musculoskeletal: reports: Other (Leg pain) Integumentary: reports: Rash Neurological: reports: No Symptoms Endocrine: reports: No Symptoms Hematology/Lymphatic: reports: No Symptoms Psychiatric: reports: No Symptoms Vital Signs: Vital Signs Temperature 98.0 F 05/08/17 06:00 Pulse Rate 90 05/08/17 06:00 Respiratory Rate 17 05/08/17 06:33 Blood Pressure 119/62 05/08/17 06:00 O2 Sat by Pulse Oximetry (%) 97 05/08/17 06:33 Constitutional: Yes: Well Nourished, No Distress, Calm Eyes: Yes: WNL, Conjunctiva Clear, EOM Intact HENT: Yes: WNL, Atraumatic, Normocephalic Neck: Yes: WNL, Supple, Trachea Midline Respiratory: Yes: Regular, Other ( Distant breath sounds with reduced air movement) Renal/: Yes: WNL Cardiovascular: Yes: Pulse Irregular JVD: No Carotid Bruit: No PMI: Non-Displaced Heart Sounds: Yes: S1, S2 Murmur: Yes: Systolic Murmur, Grade 2 Musculoskeletal: Yes: Other (Leg pains) Extremities: Yes: Erythema Edema: No Peripheral Pulses: 1+ Left Carotid, 1+ Right Carotid, 1+ Left Femoral, 1+ Right Femoral, 1+ Left Popliteal, 1+ Right Popliteal, 1+ Left Doralis Pedis, 1+ Right Dorsalis Pedis Integumentary: Yes: WNL Neurological: Yes: WNL, Alert, Oriented ...Motor Strength: WNL Psychiatric: Yes: WNL - Other Data Labs, Other Data: CBC, BMP 05/08/17 06:30 05/08/17 06:30 INR, PTT INR 1.25 (0.82-1.09) H 05/08/17 07:30 Assessment/Plan 76-year-old man presenting of lower extremity cellulitis and leg pains, noted to have paroxysmal atrial fibrillation. The patient has been on Eliquis. Probably in atrial fibrillation, not rapid, at the time of my exam. There is no evidence of ischemia nor acute coronary syndrome. No CHF. No acute ECG changes. The echocardiogram showed moderate to severe global systolic dysfunction. It also shows severe mitral valve regurgitation, and moderate tricuspid valve regurgitation. Would start Toprol-XL 25 mg daily. If blood pressure allows, start lisinopril 10 mg daily tomorrow. Continue Eliquis as currently. Salt and fluid restrictions. Will follow with you.
--- NOTE | 2017-05-08 13:51 | CONS ---
DATE OF CONSULTATION: REQUESTING PHYSICIAN: Hospitalist service HISTORY: This is a 76-year-old man with past medical history of diabetes status post CABG in 2007, left saphenous vein graft about a week ago. He has a history of chronic venostasis. About a week ago he noted some left lower extremity redness and swelling with warmth and pain. He came on the and was admitted for observation overnight. He received a dose of cefazolin. It is really unclear whether he took any Augmentin. He went home on the . The leg felt worse when he returned on the complaining of increasing erythema and pain. He has no fever or chills, no nausea or vomiting, no diarrhea or dysuria. ALLERGIES: He has no known drug allergies. MEDICATIONS: At home include Jardiance, Eliquis, Cialis, Toprol XL, Lasix, Cymbalta, Flovent, and Ventolin inhaler. SOCIAL HISTORY: He is . He lives at home with his . He drinks 1-2 beers a day. He smoked back in the 1960s after which he stopped smoking. He ambulates with cane at baseline. REVIEW OF SYSTEMS: Notable for the fact that he has had cellulitis once before in the same leg. He has chronic venostasis. PHYSICAL EXAMINATION: General: He is awake and alert. Temperature is 98, pulse 90, blood pressure 119/62, respiratory rate 17, saturating 97% on room air. HEENT: He is normocephalic. His eyes are anicteric. Neck: Supple. Lungs: Clear to auscultation. Heart: Regular rate and rhythm. Abdomen: Soft and nontender. Extremities: Both his feet are warm. He has flaking skin with venostasis changes. He has some minimal edema of the left foot. He is able to dorsiflex the left ankle. There is no sign of any effusion. He has no open ulcers or abrasions. LABORATORIES: Notable for a white count 7.9, hemoglobin 14.3, platelets 180, sedimentation rate 10. His BUN 11, creatinine 0.6. He had a duplex done of his leg on the when he came that showed no evidence of DVT. He had x-rays as well of the leg that showed no acute pathology. He had a chest x-ray done that shows mild cardiomegaly with some atelectasis of the left base. In summary, this is a 76-year-old man with left lower extremity cellulitis, venostasis, no history of resistant organisms, no recent antibiotics, no open ulcers or abscesses, no fevers. I would suspect we could treat him with cefazolin with plans to transition to Keflex after he shows some improvement. Further recommendations to follow. Roberto NARANJO/[id number]
[2017-05-08] MEDS ORDERED: PT OWN MED DRAWER 7, Y5N ONE (16:23)
[2017-05-08] MEDS: MINERAL OIL/PETROLAT/WATER TOPICAL CREAM 113 GM JAR TP SCH (16:24)
[2017-05-08] MEDS: traMADol HCL 50 MG TABLET PO PRN (16:24)
[2017-05-08] MEDS: MOMETASONE FUROATE 220 MCG/IH INHALER IH SCH (21:04)
[2017-05-09] MEDS: CEFAZOLIN 2 GM/D5W 2 GM/50 ML ML IVPB SCH ×3 (03:20→17:22)
[2017-05-09] MEDS: INSULIN SLIDING SCALE (NOVOLOG) 1 VIAL SQ SCH ×4 (06:03→21:25)
[2017-05-09] MEDS: DULoxetine HCL 30 MG CAPSULE.DR (FP) PO SCH ×2 (09:26→21:26)
[2017-05-09] MEDS: traMADol HCL 50 MG TABLET PO PRN (09:26)
[2017-05-09] MEDS: APIXABAN 5 MG TABLET PO SCH ×2 (09:26→21:26)
[2017-05-09] MEDS: MINERAL OIL/PETROLAT/WATER TOPICAL CREAM 113 GM JAR TP SCH (09:37)
--- NOTE | 2017-05-09 13:11 | PN ---
Progress Note, Physician History of Present Illness: PAIN OF THE LE--LESS - Current Medication List Current Medications: Active Medications Albuterol Sulfate (Ventolin Hfa Inhaler -) 2 puff IH Q4H PRN PRN Reason: ASTHMA Apixaban (Eliquis -) 5 mg PO BID [facility] Last Admin: 05/09/17 09:26 Dose: 5 mg Duloxetine HCl (Cymbalta -) 30 mg PO BID [facility] Last Admin: 05/09/17 09:26 Dose: 30 mg Cefazolin Sodium/Dextrose (Ancef 2 Gm Premixed Ivpb -) 2 gm in 50 mls @ 100 mls /hr IVPB Q8H-IV [facility] Last Admin: 05/09/17 09:31 Dose: 100 mls/hr Insulin Aspart (Novolog Vial Sliding Scale -) 1 vial SQ ACHS [facility] PRN Reason: Protocol Last Admin: 05/09/17 11:58 Dose: 2 units Mometasone Furoate (Asmanex 220mcg -) 1 puff IH HS [facility] Last Admin: 05/08/17 21:04 Dose: 1 puff Multi-Ingredient Lotion (Eucerin (Small Jar) -) 1 applic TP DAILY [facility] Last Admin: 05/09/17 09:37 Dose: 1 applic Tramadol HCl (Ultram -) 50 mg PO Q8H PRN PRN Reason: LEFT LEG PAIN Last Admin: 05/09/17 09:26 Dose: 50 mg - Objective Vital Signs: Vital Signs Temperature 97.6 F 05/09/17 05:56 Pulse Rate 113 H 05/09/17 05:56 Respiratory Rate 18 05/09/17 05:56 Blood Pressure 127/75 05/09/17 05:56 O2 Sat by Pulse Oximetry (%) 96 05/08/17 19:13 Cardiovascular: Yes: Regular Rate and Rhythm Respiratory: Yes: Regular, CTA Bilaterally Gastrointestinal: Yes: Normal Bowel Sounds, Soft. No: Tenderness Extremities: Yes: Erythema Edema: Yes Integumentary: Yes: Venous Stasis Changes Labs: CBC, BMP 05/08/17 06:30 05/08/17 06:30 INR, PTT INR 1.25 (0.82-1.09) H 05/08/17 07:30 Problem List - Problems (1) Cellulitis Assessment/Plan: IV ABX ID CONSULT Code(s): L03.90 - CELLULITIS, UNSPECIFIED Qualifiers: Site of cellulitis: other site Qualified Code(s): L03.818 - Cellulitis of other sites (2) Left foot pain Assessment/Plan: ABOVE R/O DVT ORTHO URIC ACID DUPLEX Code(s): M79.672 - PAIN IN LEFT FOOT (3) COPD (chronic obstructive pulmonary disease) Assessment/Plan: NEBS Code(s): J44.9 - CHRONIC OBSTRUCTIVE PULMONARY DISEASE, UNSPECIFIED (4) Edema Assessment/Plan: LASIX X 1 Code(s): R60.9 - EDEMA, UNSPECIFIED (5) Afib Assessment/Plan: ON ELIQUIS ADD TOPROL XL 25 Code(s): I48.91 - UNSPECIFIED ATRIAL FIBRILLATION
[2017-05-09] MEDS ORDERED: FUROSEMIDE 40 MG/4 ML INJECTABLE VIAL IVPUSH ONE (14:00)
[2017-05-09] MEDS: metoPROLOL SUCCINATE 25 MG TAB.SR.24H (FP) PO SCH (14:21)
--- NOTE | 2017-05-09 14:21 | PN ---
Progress Note, Physician Chief Complaint: Leg cellulitis No cardiac complaints History of Present Illness: The patient is a 76-year-old man, with a history of diabetes, hypertension, hyperlipidemia, asthma, paroxysmal atrial fibrillation on Eliquis, coronary artery disease, status post CABG, chronic venous stasis, now admitted with leg pains and cellulitis. The patient denies chest pains, shortness of breath, palpitations. On admission the patient was in atrial fibrillation. Spontaneously converted to sinus rhythm. The echocardiogram was a technically difficult study. It showed moderate to severe global left ventricular systolic dysfunction, with severe mitral valve regurgitation and moderate tricuspid valve regurgitation. - Current Medication List Current Medications: Active Medications Albuterol Sulfate (Ventolin Hfa Inhaler -) 2 puff IH Q4H PRN PRN Reason: ASTHMA Apixaban (Eliquis -) 5 mg PO BID COUNTS [facility]CLUDE 234 BEDS AT THE [facility] Last Admin: 05/09/17 09:26 Dose: 5 mg Duloxetine HCl (Cymbalta -) 30 mg PO BID COUNTS INCLUDE 234 BEDS AT THE [facility] Last Admin: 05/09/17 09:26 Dose: 30 mg Cefazolin Sodium/Dextrose (Ancef 2 Gm Premixed Ivpb -) 2 gm in 50 mls @ 100 mls /hr IVPB Q8H-IV COUNTS INCLUDE 234 BEDS AT THE [facility] Last Admin: 05/09/17 09:31 Dose: 100 mls/hr Insulin Aspart (Novolog Vial Sliding Scale -) 1 vial SQ ACHS COUNTS INCLUDE 234 BEDS AT THE [facility] PRN Reason: Protocol Last Admin: 05/09/17 11:58 Dose: 2 units Metoprolol Succinate (Toprol Xl -) 25 mg PO DAILY COUNTS INCLUDE 234 BEDS AT THE [facility] Mometasone Furoate (Asmanex 220mcg -) 1 puff IH HS COUNTS INCLUDE 234 BEDS AT THE [facility] Last Admin: 05/08/17 21:04 Dose: 1 puff Multi-Ingredient Lotion (Eucerin (Small Jar) -) 1 applic TP DAILY COUNTS INCLUDE 234 BEDS AT THE [facility] Last Admin: 05/09/17 09:37 Dose: 1 applic Tramadol HCl (Ultram -) 50 mg PO Q8H PRN PRN Reason: LEFT LEG PAIN Last Admin: 05/09/17 09:26 Dose: 50 mg - Objective Vital Signs: Vital Signs Temperature 97.6 F 05/09/17 05:56 Pulse Rate 113 H 05/09/17 05:56 Respiratory Rate 18 05/09/17 05:56 Blood Pressure 127/75 05/09/17 05:56 O2 Sat by Pulse Oximetry (%) 96 03/09/18 19:13 Constitutional: Yes: Well Nourished, No Distress, Calm Neck: Yes: WNL Cardiovascular: Yes: Pulse Irregular, S1, S2. No: JVD Respiratory: Yes: CTA Bilaterally Gastrointestinal: Yes: Soft Extremities: Yes: Other (+cellulitis) Edema: LLE: 1+, RLE: 1+ Labs: CBC, BMP 05/08/17 06:30 05/08/17 06:30 INR, PTT INR 1.25 (0.82-1.09) H 05/08/17 07:30 Assessment/Plan The patient is a 76-year-old man, with a history of diabetes, hypertension, hyperlipidemia, asthma, paroxysmal atrial fibrillation on Eliquis, coronary artery disease status post CABG, and chronic venous stasis now admitted with leg pains and cellulitis. 1) CAD and systolic CHF -The echocardiogram was a technically difficult study. It showed moderate to severe global left ventricular systolic dysfunction, with severe mitral valve regurgitation and moderate tricuspid valve regurgitation. -Patient denies any cardiac symptoms or complaints. Unclear acuity of low LVEF. Started metoprolol 25mg xl today. If bp tolerates tomorrow would either increase metoprolol to 50mg xl if HR still needs to improve but if HR well controlled than would start lisinopril 5mg daily at that time if HR well controlled on metoprolol 25mg xl -Will f/u as outpatient after infection treated and see if any further ischemia testing needed 2) Afib started on metoprolol and will adjust as needed On apixaban
[2017-05-09] MEDS: MOMETASONE FUROATE 220 MCG/IH INHALER IH SCH (22:22)
[2017-05-10] MEDS: CEFAZOLIN 2 GM/D5W 2 GM/50 ML ML IVPB SCH ×3 (03:03→17:41)
[2017-05-10] MEDS: ALBUTEROL SO4 18 GM HFA INHALER IH PRN (04:21)
[2017-05-10] MEDS: INSULIN SLIDING SCALE (NOVOLOG) 1 VIAL SQ SCH ×4 (06:36→21:37)
[2017-05-10 08:26] LABS: ANION GAP 12 (8-16); BLOOD UREA NITROGEN 12 mg/dL (7-18); CALCIUM 8.2 mg/dL (8.5-10.1); CHLORIDE 99 mmol/L (98-107); CO2 25 mmol/L (21-32); CREATININE 0.8 mg/dL (0.7-1.3); GLUCOSE,RANDOM 134 mg/dL (74-106); POTASSIUM 3.6 mmol/L (3.5-5.1); SODIUM 136 mmol/L (136-145)
--- NOTE | 2017-05-10 08:27 | PN ---
Progress Note, Physician Chief Complaint: No complaints No chest pain, sob, or palpitations History of Present Illness: The patient is a 76-year-old man, with a history of diabetes, hypertension, hyperlipidemia, asthma, paroxysmal atrial fibrillation on Eliquis, coronary artery disease, status post CABG, chronic venous stasis, now admitted with leg pains and cellulitis. The patient denies chest pains, shortness of breath, palpitations. On admission the patient was in atrial fibrillation. Spontaneously converted to sinus rhythm. The echocardiogram was a technically difficult study. It showed moderate to severe global left ventricular systolic dysfunction, with severe mitral valve regurgitation and moderate tricuspid valve regurgitation. - Current Medication List Current Medications: Active Medications Albuterol Sulfate (Ventolin Hfa Inhaler -) 2 puff IH Q4H PRN PRN Reason: ASTHMA Last Admin: 05/10/17 04:21 Dose: 2 puff Apixaban (Eliquis -) 5 mg PO BID [facility] Last Admin: 05/09/17 21:26 Dose: 5 mg Duloxetine HCl (Cymbalta -) 30 mg PO BID [facility] Last Admin: 05/09/17 21:26 Dose: 30 mg Cefazolin Sodium/Dextrose (Ancef 2 Gm Premixed Ivpb -) 2 gm in 50 mls @ 100 mls /hr IVPB Q8H-IV [facility] Last Admin: 05/10/17 03:03 Dose: 100 mls/hr Insulin Aspart (Novolog Vial Sliding Scale -) 1 vial SQ ACHS [facility] PRN Reason: Protocol Last Admin: 05/10/17 06:36 Dose: Not Given Metoprolol Succinate (Toprol Xl -) 25 mg PO DAILY [facility] Last Admin: 05/09/17 14:21 Dose: 25 mg Mometasone Furoate (Asmanex 220mcg -) 1 puff IH HS [facility] Last Admin: 05/09/17 22:22 Dose: 1 puff Multi-Ingredient Lotion (Eucerin (Small Jar) -) 1 applic TP DAILY [facility] Last Admin: 05/09/17 09:37 Dose: 1 applic Tramadol HCl (Ultram -) 50 mg PO Q8H PRN PRN Reason: LEFT LEG PAIN Last Admin: 05/09/17 09:26 Dose: 50 mg - Objective Vital Signs: Vital Signs Temperature 97.6 F 05/10/17 06:00 Pulse Rate 122 H 05/10/17 06:00 Respiratory Rate 20 05/10/17 06:00 Blood Pressure 129/72 05/10/17 06:00 O2 Sat by Pulse Oximetry (%) 96 05/09/17 20:47 Constitutional: Yes: No Distress Neck: Yes: Supple Cardiovascular: Yes: Pulse Irregular, S1, S2. No: JVD Respiratory: Yes: CTA Bilaterally Gastrointestinal: Yes: Soft Extremities: Yes: Erythema Edema: LLE: Trace, RLE: Trace Labs: CBC, BMP 05/08/17 06:30 INR, PTT INR 1.25 (0.82-1.09) H 05/08/17 07:30 Assessment/Plan The patient is a 76-year-old man, with a history of diabetes, hypertension, hyperlipidemia, asthma, paroxysmal atrial fibrillation on Eliquis, coronary artery disease status post CABG, and chronic venous stasis now admitted with leg pains and cellulitis. 1) CAD and systolic CHF -The echocardiogram was a technically difficult study. It showed moderate to severe global left ventricular systolic dysfunction, with severe mitral valve regurgitation and moderate tricuspid valve regurgitation. -Patient denies any cardiac symptoms or complaints. Unclear acuity of low LVEF. Tolerating metoprolol 25mg xl. Would consider starting lisinopril 5mg daily if no contraindications. Would continue to uptitrate chf regimen as tolerated -Will f/u as outpatient after infection treated and see if any further ischemia testing needed 2) Afib on metoprolol and uptitrate if needed On apixaban
[2017-05-10] MEDS: DULoxetine HCL 30 MG CAPSULE.DR (FP) PO SCH ×2 (09:53→21:33)
[2017-05-10] MEDS: APIXABAN 5 MG TABLET PO SCH ×2 (09:53→21:33)
[2017-05-10] MEDS: metoPROLOL SUCCINATE 25 MG TAB.SR.24H (FP) PO SCH (09:53)
[2017-05-10] MEDS: MINERAL OIL/PETROLAT/WATER TOPICAL CREAM 113 GM JAR TP SCH (09:54)
--- NOTE | 2017-05-10 11:09 | PN ---
Progress Note, Physician - Current Medication List Current Medications: Active Medications Albuterol Sulfate (Ventolin Hfa Inhaler -) 2 puff IH Q4H PRN PRN Reason: ASTHMA Last Admin: 05/10/17 04:21 Dose: 2 puff Apixaban (Eliquis -) 5 mg PO BID [facility] Last Admin: 05/10/17 09:53 Dose: 5 mg Duloxetine HCl (Cymbalta -) 30 mg PO BID [facility] Last Admin: 05/10/17 09:53 Dose: 30 mg Cefazolin Sodium/Dextrose (Ancef 2 Gm Premixed Ivpb -) 2 gm in 50 mls @ 100 mls /hr IVPB Q8H-IV [facility] Last Admin: 05/10/17 09:52 Dose: 100 mls/hr Insulin Aspart (Novolog Vial Sliding Scale -) 1 vial SQ ACHS [facility] PRN Reason: Protocol Last Admin: 05/10/17 06:36 Dose: Not Given Metoprolol Succinate (Toprol Xl -) 25 mg PO DAILY [facility] Last Admin: 05/10/17 09:53 Dose: 25 mg Mometasone Furoate (Asmanex 220mcg -) 1 puff IH HS [facility] Last Admin: 05/09/17 22:22 Dose: 1 puff Multi-Ingredient Lotion (Eucerin (Small Jar) -) 1 applic TP DAILY [facility] Last Admin: 05/10/17 09:54 Dose: 1 applic Tramadol HCl (Ultram -) 50 mg PO Q8H PRN PRN Reason: LEFT LEG PAIN Last Admin: 05/09/17 09:26 Dose: 50 mg - Objective Vital Signs: Vital Signs Temperature 97.6 F 05/10/17 06:00 Pulse Rate 122 H 05/10/17 06:00 Respiratory Rate 20 05/10/17 06:00 Blood Pressure 129/72 05/10/17 06:00 O2 Sat by Pulse Oximetry (%) 96 05/09/17 20:47 Cardiovascular: Yes: Regular Rate and Rhythm Respiratory: Yes: Regular, CTA Bilaterally Gastrointestinal: Yes: Normal Bowel Sounds, Soft Labs: CBC, BMP 05/08/17 06:30 05/10/17 06:30 INR, PTT INR 1.25 (0.82-1.09) H 05/08/17 07:30 Problem List - Problems (1) Cellulitis Assessment/Plan: IV ABX ID CONSULT Code(s): L03.90 - CELLULITIS, UNSPECIFIED Qualifiers: Site of cellulitis: other site Qualified Code(s): L03.818 - Cellulitis of other sites (2) Left foot pain Assessment/Plan: ABOVE R/O DVT ORTHO URIC ACID DUPLEX Code(s): M79.672 - PAIN IN LEFT FOOT (3) COPD (chronic obstructive pulmonary disease) Assessment/Plan: NEBS Code(s): J44.9 - CHRONIC OBSTRUCTIVE PULMONARY DISEASE, UNSPECIFIED (4) Edema Assessment/Plan: LASIX 40 qd Code(s): R60.9 - EDEMA, UNSPECIFIED (5) Afib Assessment/Plan: ON ELIQUIS ADD TOPROL XL 25 Code(s): I48.91 - UNSPECIFIED ATRIAL FIBRILLATION
[2017-05-10] MEDS: COLCHICINE 0.6 MG TABLET (FP) PO SCH (13:30)
[2017-05-10] MEDS: ALLOPURINOL 100 MG TABLET (FP) PO SCH (13:31)
[2017-05-10] MEDS: FUROSEMIDE 40 MG TABLET (FP) PO SCH (13:31)
--- NOTE | 2017-05-10 14:17 | PN ---
Progress Note (short form) - Note Progress Note: feels improved no leg pain no difficulty ambulating Vital Signs Period Temp Pulse Resp BP Sys/Zuniga Pulse Ox Last 24 Hr 97.5 F-98.7 F 42-122 20-20 122-142/72-82 96-96 cor-rrr llungs clear abd soft,nt ext decreasing erythema of the LLE no leg pain CBC, BMP 05/08/17 06:30 05/10/17 06:30 Microbiology 05/07/17 19:40 Blood - Peripheral Venous Blood Culture - Preliminary NO GROWTH OBTAINED AFTER 48 HOURS, INCUBATION TO CONTINUE FOR 3 DAYS. 05/07/17 19:40 Blood - Peripheral Venous Blood Culture - Preliminary NO GROWTH OBTAINED AFTER 48 HOURS, INCUBATION TO CONTINUE FOR 3 DAYS. ap cellulitis venous stasis can switch to po keflex 500 tid in am for another 7 days thanks Problem List - Problems (1) Cellulitis Code(s): L03.90 - CELLULITIS, UNSPECIFIED Qualifiers: Site of cellulitis: other site Qualified Code(s): L03.818 - Cellulitis of other sites
--- NOTE | 2017-05-10 19:57 | EKG ---
Test Reason : Blood Pressure : / mmHG Vent. Rate : 123 BPM Atrial Rate : 123 BPM P-R Int : 000 ms QRS Dur : 126 ms QT Int : 310 ms P-R-T Axes : 000 -33 107 degrees QTc Int : 443 ms UNDETERMINED RHYTHM WITH FREQUENT PREMATURE VENTRICULAR COMPLEXES CANNOT RULE OUT ATRIAL FIBRILLATION LEFT AXIS DEVIATION NONSPECIFIC INTRAVENTRICULAR CONDUCTION DEFECT ABNORMAL ECG WHEN COMPARED WITH ECG OF 08-MAY-2017 08:54, POSSIBLE RHYTHM CHANGE Confirmed by NAHOMI BLANCO, LUANA ([id number]) on 05/10/2017 7:57:49 PM Referred By: GOGO GONG Confirmed By:LUANA COMER MD
[2017-05-10] MEDS: MOMETASONE FUROATE 220 MCG/IH INHALER IH SCH (21:32)
--- NOTE | 2017-05-10 21:52 | CONSULT ---
Consult Consult Specialty:: ENDOCRINE Referred by:: DR.ANNABI BOWENS Reason for Consultation:: DIABETES MELLITUS - History of Present Illness Chief Complaint: WEAKNESS HIGH SUGARS History of Present Illness: 76 y/o M with PMHx asthma, DM, HTN, CAD s/p CABG, chronic venous stasis, recently seen in ED 05/07/ LLE pain (-DVT, - art doppler, to see ortho, PCP follow up, with augmentin-never picked up). Now presenting with worsening LLE pain weakness high sugars, nausea ,blurred vision,denies low blood sugars - Past Medical History Cardio/Vascular: Yes: AFIB, CAD, CHF, HTN, Hyperlipdemia, Mitral Insufficiency Pulmonary: Yes: Asthma, COPD - Alcohol/Substance Use Hx Alcohol Use: No - Smoking History Smoking history: Never smoked Have you smoked in the past 12 months: No Home Medications - Allergies Allergies/Adverse Reactions: Allergies Allergy/AdvReac Type Severity Reaction Status Date / Time No Known Drug Allergies Allergy Verified 05/07/17 18:17 - Home Medications Home Medications: Ambulatory Orders Albuterol Sulfate Inhaler - [Ventolin Hfa Inhaler -] 2 inh PO Q4H PRN 05/07/17 Amoxicillin/Potassium Clav [Augmentin 875-125 Tablet] 1 each PO DAILY 05/07/17 Apixaban [Eliquis] 5 mg PO DAILY 05/07/17 Duloxetine HCl [Cymbalta] 30 mg PO BID 05/07/17 Empagliflozin [Jardiance] 10 mg PO DAILY 05/07/17 Fluticasone Propionate [Flovent Hfa] 220 mcg IH BID 05/07/17 Furosemide [Lasix] 40 mg PO DAILY 05/07/17 Metoprolol Succinate [Toprol Xl] 50 mg PO DAILY 05/07/17 Tadalafil [Cialis] 5 mg PO PRN 05/07/17 Review of Systems - Review of Systems Constitutional: reports: Lethargy Eyes: reports: Blurred Vision HENT: reports: No Symptoms Neck: reports: No Symptoms Cardiovascular: reports: Shortness of Breath Respiratory: reports: Exercise Intolerance Gastrointestinal: reports: Constipation Genitourinary: reports: No Symptoms Musculoskeletal: reports: Muscle Cramps, Muscle Weakness Integumentary: reports: Erythema Neurological: reports: Confusion, Weakness Endocrine: reports: Increased Hunger Physical Exam Vital Signs: Vital Signs Temperature 97.5 F L 03/11/18 20:38 Pulse Rate 82 05/10/17 20:38 Respiratory Rate 20 05/10/17 20:38 Blood Pressure 114/78 05/10/17 20:38 O2 Sat by Pulse Oximetry (%) 97 05/10/17 20:38 Constitutional: Yes: Anxious Eyes: Yes: EOM Intact HENT: Yes: Normocephalic Neck: Yes: Trachea Midline Cardiovascular: Yes: Regular Rate and Rhythm Respiratory: Yes: CTA Bilaterally Gastrointestinal: Yes: Normal Bowel Sounds ...Rectal Exam: Yes: Deferred Renal/: Yes: WNL Breast(s): Yes: WNL Musculoskeletal: Yes: Muscle Weakness Extremities: Yes: Delayed Capillary Refill Edema: Yes Edema: LLE: 1+, RLE: 1+ Peripheral Pulses WNL: Yes Integumentary: Yes: Skin Tear, Onychomycosis, Venous Stasis Changes Labs: CBC, BMP 05/08/17 06:30 05/10/17 06:30 Problem List - Problems (1) Type 2 diabetes mellitus with diabetic nephropathy Code(s): E11.21 - TYPE 2 DIABETES MELLITUS WITH DIABETIC NEPHROPATHY (2) Controlled diabetes mellitus type 2 with complications Code(s): E11.8 - TYPE 2 DIABETES MELLITUS WITH UNSPECIFIED COMPLICATIONS (3) Left foot pain Code(s): M79.672 - PAIN IN LEFT FOOT Assessment/Plan Current Active Problems Afib (Acute) COPD (chronic obstructive pulmonary disease) (Acute) Cellulitis (Acute) Edema (Acute) DIABETES MELLITUS HYPERGLYCEMIA DIABETIC NEUROPATHY Abnormal Lab Results 05/10/17 06:30 Random Glucose 134 H D Calcium 8.2 L Laboratory Results - last 24 hr 05/09/17 05/10/17 05/10/17 21:25 06:30 06:34 Sodium 136 Potassium 3.6 Chloride 99 Carbon Dioxide 25 Anion Gap 12 BUN 12 Creatinine 0.8 D POC Glucometer 147 148 Random Glucose 134 H D Calcium 8.2 L 05/10/17 05/10/17 11:35 16:30 Sodium Potassium Chloride Carbon Dioxide Anion Gap BUN Creatinine POC Glucometer 168 173 Random Glucose Calcium Laboratory Results - last 24 hr 05/09/17 05/10/17 05/10/17 21:25 06:30 06:34 Sodium 136 Potassium 3.6 Chloride 99 Carbon Dioxide 25 Anion Gap 12 BUN 12 Creatinine 0.8 D POC Glucometer 147 148 Random Glucose 134 H D Calcium 8.2 L 05/10/17 05/10/17 11:35 16:30 Sodium Potassium Chloride Carbon Dioxide Anion Gap BUN Creatinine POC Glucometer 168 173 Random Glucose Calcium PLAN :BGM QID NOVOLOG SCALE levemir 20 units am Laboratory Tests 05/10/17 05/10/17 05/10/17 06:30 06:34 11:35 Sodium 136 Potassium 3.6 Chloride 99 Carbon Dioxide 25 Anion Gap 12 BUN 12 Creatinine 0.8 D POC Glucometer 148 168 Calcium 8.2 L 05/10/17 05/10/17 16:30 21:35 Sodium Potassium Chloride Carbon Dioxide Anion Gap BUN Creatinine POC Glucometer 173 187 Calcium check [id number]
[2017-05-11] MEDS: CEFAZOLIN 2 GM/D5W 2 GM/50 ML ML IVPB SCH (02:29)
[2017-05-11] MEDS: INSULIN SLIDING SCALE (NOVOLOG) 1 VIAL SQ SCH ×4 (06:07→21:06)
[2017-05-11] MEDS: INSULIN DETEMIR 100 UNITS/ML MDV SQ SCH (06:07)
--- NOTE | 2017-05-11 08:21 | DS ---
Physical Examination Vital Signs: Vital Signs Temperature 97.8 F 05/11/17 06:00 Pulse Rate 90 05/11/17 06:00 Respiratory Rate 20 05/11/17 06:00 Blood Pressure 124/73 05/11/17 06:00 O2 Sat by Pulse Oximetry (%) 96 05/11/17 04:00 Cardiovascular: Yes: Pulse Irregular, S1, S2 Respiratory: Yes: Regular, CTA Bilaterally Gastrointestinal: Yes: Normal Bowel Sounds, Soft Extremities: Yes: Erythema (LESS) Edema: Yes (IMPROVING) Labs: CBC, BMP 05/08/17 06:30 05/10/17 06:30 Discharge Summary Reason For Visit: CELLULITIS Current Active Problems Afib (Acute) COPD (chronic obstructive pulmonary disease) (Acute) Cellulitis (Acute) Controlled diabetes mellitus type 2 with complications (Acute) Edema (Acute) Type 2 diabetes mellitus with diabetic nephropathy (Acute) Hospital Course: 76 y/o M with PMHx asthma, DM, HTN, CAD s/p CABG, chronic venous stasis, recently seen in ED 05/07/ LLE pain (-DVT, - art doppler, to see ortho, PCP follow up, with augmentin-never picked up). Now presenting with worsening LLE pain and swelling. Inability to bear weight on LLE because of pain although pt describes the pain sensation as 2/10, "troubling", absent pins and needle sensation. He denies fevers, chills, trauma, discharge, bug or animal bites. Pt reports a previous L ankle blister about a week ago that disappeared on its own followed by the pain then swelling. Pt denies loss of sensation or unstable gait, walks mostly without but occasionally with a cane. Lives at home with independent ADLs and cares for disabled . 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 Pt says his sugar is controlled between 120-150 on 80u long-acting insulin (could not be verified). Last A1c last year said to be 7. Pt denies pins and needles sensation, chest pain, cough. He has occasional SOB, but no PND , or orthopnea. No dysuria or change in bowel habit. 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 His last eye follow up was said to be last year. ER course was notable for: (1) EKG- sinus rhythm, 1st degree AV block with occ PVCs, LAD, LBBB (2) Vanco 2g (3) [id number], CMP, CBC, bld cx-pending Recent Travel: None PAST MEDICAL HISTORY: asthma, DM, HTN, CAD s/p CABG chronic venous stasis PAST SURGICAL HISTORY: CABG- Social History: Smoking: Former-stopped over 30 years ago - Problems (1) Cellulitis Assessment/Plan: IV ABX--TO KEFLEX ID CONSULT NOTED Code(s): L03.90 - CELLULITIS, UNSPECIFIED Qualifiers: Site of cellulitis: other site Qualified Code(s): L03.818 - Cellulitis of other sites (2) Left foot pain Assessment/Plan: ABOVE DUPLEX NEG FOR DVT ORTHO NOTED URIC ACID HIGH ON ALLOPURINOL AND COLCRYS Code(s): M79.672 - PAIN IN LEFT FOOT (3) COPD (chronic obstructive pulmonary disease) Assessment/Plan: NEBS Code(s): J44.9 - CHRONIC OBSTRUCTIVE PULMONARY DISEASE, UNSPECIFIED (4) Edema Assessment/Plan: LASIX 40 qd Code(s): R60.9 - EDEMA, UNSPECIFIED (5) Afib Assessment/Plan: ON ELIQUIS ADD TOPROL XL 50 Code(s): I48.91 - UNSPECIFIED ATRIAL FIBRILLATION Condition: Guarded - Instructions Referrals: Petra Ayon MD [Primary Care Provider] - - Home Medications Comprehensive Discharge Medication List: Ambulatory Orders Albuterol Sulfate Inhaler - [Ventolin HFA Inhaler -] 2 inh PO Q4H PRN 05/07/17 Duloxetine HCl [Cymbalta] 30 mg PO BID 05/07/17 Fluticasone Propionate [Flovent Hfa] 220 mcg IH BID 05/07/17 Furosemide [Lasix] 40 mg PO DAILY 05/07/17 Metoprolol Succinate [Toprol Xl] 50 mg PO DAILY 05/07/17 Tadalafil [Cialis] 5 mg PO PRN 05/07/17 Allopurinol [Zyloprim -] 100 mg PO DAILY #30 tablet 05/11/17 Apixaban [Eliquis -] 5 mg PO BID tablet 05/11/17 Cephalexin Monohydrate [Keflex -] 500 mg PO TID #21 capsule 05/11/17 Colchicine [Colcrys -] 0.6 mg PO DAILY #30 tablet 05/11/17 Insulin (Levemir) [Levemir Vial] 20 units SQ AM #5 syringe 05/11/17 Mineral Oil/Petrolat,Wht/Water [Eucerin (Small Jar) -] 1 applic TP DAILY jar traMADol HCL [Ultram -] 50 mg PO Q8H PRN tablet MDD 3 05/11/17
[2017-05-11] MEDS ORDERED: PT OWN MED DRAWER 7, Y5N ONE ×2 (09:56→21:10)
[2017-05-11] MEDS: ALBUTEROL SO4 18 GM HFA INHALER IH PRN (10:00)
[2017-05-11] MEDS ORDERED: metoPROLOL SUCCINATE 25 MG TAB.SR.24H (FP) PO SCH (10:00)
[2017-05-11] MEDS: DULoxetine HCL 30 MG CAPSULE.DR (FP) PO SCH ×2 (10:04→21:12)
[2017-05-11] MEDS: FUROSEMIDE 40 MG TABLET (FP) PO SCH (10:04)
[2017-05-11] MEDS: COLCHICINE 0.6 MG TABLET (FP) PO SCH (10:04)
[2017-05-11] MEDS: APIXABAN 5 MG TABLET PO SCH ×2 (10:04→21:12)
[2017-05-11] MEDS: ALLOPURINOL 100 MG TABLET (FP) PO SCH (10:05)
[2017-05-11] MEDS: MINERAL OIL/PETROLAT/WATER TOPICAL CREAM 113 GM JAR TP SCH (10:08)
[2017-05-11] MEDS: ALBUTEROL SO4 2.5/IPRATROPIUM 0.5 INH SOL 3 ML VIAL.NEB. NEB SCH ×3 (11:10→20:15)
--- NOTE | 2017-05-11 13:42 | PN ---
Progress Note (short form) - Note Progress Note: Vascular Surgery Pt seen and examined. Left lower ext venous stasis. Please have the pt follow up in wound care clinic Please make pt appt upon dc -- [phone] Pt needs compression with jeison bandages. Suman maher dO
[2017-05-11] MEDS: CEPHALEXIN MONOHYDRATE 500 MG CAPSULE (UD) PO SCH ×2 (14:23→21:12)
--- NOTE | 2017-05-11 15:49 | EKG ---
Test Reason : Blood Pressure : / mmHG Vent. Rate : 122 BPM Atrial Rate : 041 BPM P-R Int : 000 ms QRS Dur : 126 ms QT Int : 360 ms P-R-T Axes : 000 -51 112 degrees QTc Int : 513 ms PREMATURE VENTRICULAR COMPLEXES LEFT AXIS DEVIATION LEFT BUNDLE BRANCH BLOCK ABNORMAL ECG WHEN COMPARED WITH ECG OF 11-MAY-2017 07:43, NO SIGNIFICANT CHANGE WAS FOUND Confirmed by MARIA R SCHAEFFER MD ([id number]) on 05/11/2017 3:49:22 PM Referred By: FARIDEH BOWENS DR Confirmed By:MARIA R SCHAEFFER MD
--- NOTE | 2017-05-11 15:55 | EKG ---
Test Reason : Blood Pressure : / mmHG Vent. Rate : 124 BPM Atrial Rate : 120 BPM P-R Int : 000 ms QRS Dur : 128 ms QT Int : 360 ms P-R-T Axes : 000 -40 106 degrees QTc Int : 517 ms SINUS TACHYCARDIA WITH FREQUENT PREMATURE VENTRICULAR COMPLEXES LEFT AXIS DEVIATION LEFT BUNDLE BRANCH BLOCK ABNORMAL ECG WHEN COMPARED WITH ECG OF 10-MAY-2017 08:09, NO SIGNIFICANT CHANGE WAS FOUND Confirmed by MARIA R SCHAEFFER MD ([id number]) on 05/11/2017 3:55:16 PM Referred By: FARIDEH RODRIGUEZ Confirmed By:MARIA R SCHAEFFER MD
--- NOTE | 2017-05-11 17:08 | PN ---
Progress Note, Physician Chief Complaint: Patient appears comfortable. He has no chest pain, SOB or palpitation. History of Present Illness: 76-year-old man, with a history of diabetes, hypertension, hyperlipidemia, asthma, paroxysmal atrial fibrillation on Eliquis, coronary artery disease, status post CABG, chronic venous stasis, now admitted with leg pains and cellulitis. The patient was in atrial fibrillation on admission. Spontaneously converted to sinus rhythm. Echocardiogram 05/08/2017 was a technically difficult study. It showed moderate to severe global left ventricular systolic dysfunction, with severe mitral valve regurgitation and moderate tricuspid valve regurgitation. - Current Medication List Current Medications: Active Medications Albuterol Sulfate (Ventolin Hfa Inhaler -) 2 puff IH Q4H PRN PRN Reason: ASTHMA Last Admin: 05/11/17 10:00 Dose: 2 puff Albuterol/Ipratropium (Duoneb -) 1 amp NEB RQID [facility] Last Admin: 05/11/17 16:12 Dose: 1 amp Allopurinol (Zyloprim -) 100 mg PO DAILY [facility] Last Admin: 05/11/17 10:05 Dose: 100 mg Apixaban (Eliquis -) 5 mg PO BID [facility] Last Admin: 05/11/17 10:04 Dose: 5 mg Cephalexin HCl (Keflex -) 500 mg PO TID [facility] Last Admin: 05/11/17 14:23 Dose: 500 mg Colchicine (Colcrys -) 0.6 mg PO DAILY [facility] Last Admin: 05/11/17 10:04 Dose: 0.6 mg Duloxetine HCl (Cymbalta -) 30 mg PO BID [facility] Last Admin: 05/11/17 10:04 Dose: 30 mg Furosemide (Lasix -) 40 mg PO DAILY [facility] Last Admin: 05/11/17 10:04 Dose: 40 mg Insulin Aspart (Novolog Vial Sliding Scale -) 1 vial SQ ACHS [facility] PRN Reason: Protocol Last Admin: 05/11/17 12:07 Dose: 2 units Insulin Detemir (Levemir Vial) 20 units SQ AM [facility] Last Admin: 05/11/17 06:07 Dose: 20 units Metoprolol Succinate (Toprol Xl -) 25 mg PO BID [facility] Last Admin: 05/11/17 10:04 Dose: 25 mg Mometasone Furoate (Asmanex 220mcg -) 1 puff IH HS [facility] Last Admin: 05/10/17 21:32 Dose: 1 puff Multi-Ingredient Lotion (Eucerin (Small Jar) -) 1 applic TP DAILY [facility] Last Admin: 05/11/17 10:08 Dose: 1 applic - Objective Vital Signs: Vital Signs Temperature 98 F 05/11/17 13:52 Pulse Rate 94 H 05/11/17 13:52 Respiratory Rate 22 05/11/17 13:52 Blood Pressure 106/65 05/11/17 13:52 O2 Sat by Pulse Oximetry (%) 95 05/11/17 12:00 General: Well developed. Well nourished. No acute distress. Head: Normocephalic. Atraumatic, Eyes: PERRLA, EOMI. Sclerae anicteric. Conjunctivae clear. Neck: Supple. No JVD. No bruits. Heart: Normal S1, S2: Regularly irregular rhythm and rate. No murmur. No gallop or rub. Lungs: Symmetrical air entry. Clear to auscultation. No crackle. No wheezing or rhonchi. Abdomen: Soft. Bowel sound positive. Non tender. No masses. Extremities: Trace edema. Venous stasis. No clubbing or cyanosis. PD 2+, equal bilaterally. Neuro: Intact, no focal findings. AAO X3. Labs: CBC, BMP 05/08/17 06:30 05/10/17 06:30 INR, PTT INR 1.25 (0.82-1.09) H 05/08/17 07:30 Assessment/Plan 76-year-old man, with a history of diabetes, hypertension, hyperlipidemia, asthma, paroxysmal atrial fibrillation on Eliquis, coronary artery disease, status post CABG, chronic venous stasis, now admitted with leg pains and cellulitis. The patient was in atrial fibrillation on admission. Spontaneously converted to sinus rhythm. Echocardiogram 05/08/2017 was a technically difficult study. It showed moderate to severe global left ventricular systolic dysfunction, with severe mitral valve regurgitation and moderate tricuspid valve regurgitation. 1) CAD and systolic CHF -The patient has moderate to severe global left ventricular systolic dysfunction , with severe mitral valve regurgitation. He is well compensated with minimal fluid overload and no acute dyspnea. Unclear acuity of low LVEF and severe mitral regurgitation. Tolerating metoprolol 25mg BID. Heart rate is in 90's. Will titrate up his metoprolol carefully due to relatively low BP. Could increase it to 37.5 mg BID for now. Would consider starting lisinopril 5mg daily if BP stable after increase metoprolol. Continue Lasix 40 mg daily. Will f/u as outpatient after infection treated and see if any further ischemic testing needed 2) Paroxysmal atrial fibrillation: He is in sinus with frequent VPCs. Titrate up metoprolol as above. Continue tele. Continue Eliquis for stroke prevention.
[2017-05-11] MEDS: MOMETASONE FUROATE 220 MCG/IH INHALER IH SCH (21:12)
[2017-05-11] MEDS ORDERED: METOPROLOL TARTRATE 25 MG TABLET (FP) PO SCH ×2 (22:00)
--- NOTE | 2017-05-11 22:20 | PN ---
Progress Note (short form) - Note Progress Note: diabetic control with diet and insulin doses adjusted Current Active Problems Afib (Acute) COPD (chronic obstructive pulmonary disease) (Acute) Cellulitis (Acute) Controlled diabetes mellitus type 2 with complications (Acute) Edema (Acute) Type 2 diabetes mellitus with diabetic nephropathy (Acute) Laboratory Results - last 24 hr 05/11/17 05/11/17 05/11/17 06:05 11:10 11:40 POC Glucometer 163 169 Creatine Kinase 40 Troponin I 0.05 05/11/17 05/11/17 05/11/17 13:45 14:29 16:53 POC Glucometer 225 159 Creatine Kinase 39 Troponin I 0.04 05/11/17 20:40 POC Glucometer 124 Creatine Kinase Troponin I plan: bgm with novololg scale ac meals Current Medications Generic Name Dose Route Start Last Admin Trade Name Freq PRN Reason Stop Dose Admin Albuterol Sulfate 2 puff 05/07/17 23:19 05/11/17 10:00 Ventolin Hfa Inhaler - IH 2 puff Q4H PRN Administration ASTHMA Albuterol/Ipratropium 1 amp 05/11/17 12:00 05/11/17 20:15 Duoneb - NEB 1 amp RQID [facility] Administration Allopurinol 100 mg 05/10/17 12:00 05/11/17 10:05 Zyloprim - PO 100 mg DAILY [facility] Administration Apixaban 5 mg 05/08/17 10:00 05/11/17 21:12 Eliquis - PO 5 mg BID [facility] Administration Cephalexin HCl 500 mg 05/11/17 14:00 05/11/17 21:12 Keflex - PO 500 mg TID [facility] Administration Colchicine 0.6 mg 05/10/17 12:00 05/11/17 10:04 Colcrys - PO 0.6 mg DAILY [facility] Administration Duloxetine HCl 30 mg 05/07/17 23:30 05/11/17 21:12 Cymbalta - PO 30 mg BID [facility] Administration Furosemide 40 mg 05/10/17 12:00 05/11/17 10:04 Lasix - PO 40 mg DAILY [facility] Administration Insulin Aspart 1 vial 05/07/17 22:00 05/11/17 21:06 Novolog Vial Sliding Scale - SQ Not Given ACHS [facility] Protocol Insulin Detemir 20 units 05/11/17 07:00 05/11/17 06:07 Levemir Vial SQ 20 units AM [facility] Administration Metoprolol Tartrate 37.5 mg 05/11/17 22:00 05/11/17 21:12 Lopressor - PO 37.5 mg BID [facility] Administration Mometasone Furoate 1 puff 05/08/17 22:00 05/11/17 21:12 Asmanex 220mcg - IH 1 puff HS [facility] Administration Multi-Ingredient Lotion 1 applic 05/08/17 10:00 05/11/17 10:08 Eucerin (Small Jar) - TP 1 applic DAILY [facility] Administration follow with outpatient nutrition and monitoring bgm Problem List - Problems (1) Type 2 diabetes mellitus with diabetic nephropathy Code(s): E11.21 - TYPE 2 DIABETES MELLITUS WITH DIABETIC NEPHROPATHY (2) Controlled diabetes mellitus type 2 with complications Code(s): E11.8 - TYPE 2 DIABETES MELLITUS WITH UNSPECIFIED COMPLICATIONS (3) Left foot pain Code(s): M79.672 - PAIN IN LEFT FOOT
[2017-05-12] MEDS: CEPHALEXIN MONOHYDRATE 500 MG CAPSULE (UD) PO SCH ×3 (06:05→21:08)
[2017-05-12] MEDS: INSULIN SLIDING SCALE (NOVOLOG) 1 VIAL SQ SCH ×4 (06:06→21:08)
[2017-05-12] MEDS: INSULIN DETEMIR 100 UNITS/ML MDV SQ SCH (06:06)
[2017-05-12] MEDS: ALBUTEROL SO4 2.5/IPRATROPIUM 0.5 INH SOL 3 ML VIAL.NEB. NEB SCH ×4 (08:38→19:18)
--- NOTE | 2017-05-12 09:25 | PN ---
Progress Note, Physician History of Present Illness: PAIN OF THE LE--LESS - Current Medication List Current Medications: Active Medications Albuterol Sulfate (Ventolin Hfa Inhaler -) 2 puff IH Q4H PRN PRN Reason: ASTHMA Last Admin: 05/11/17 10:00 Dose: 2 puff Albuterol/Ipratropium (Duoneb -) 1 amp NEB RQID [facility] Last Admin: 05/12/17 08:38 Dose: 1 amp Allopurinol (Zyloprim -) 100 mg PO DAILY [facility] Last Admin: 05/11/17 10:05 Dose: 100 mg Apixaban (Eliquis -) 5 mg PO BID [facility] Last Admin: 05/11/17 21:12 Dose: 5 mg Cephalexin HCl (Keflex -) 500 mg PO TID [facility] Last Admin: 05/12/17 06:05 Dose: 500 mg Colchicine (Colcrys -) 0.6 mg PO DAILY [facility] Last Admin: 05/11/17 10:04 Dose: 0.6 mg Duloxetine HCl (Cymbalta -) 30 mg PO BID [facility] Last Admin: 05/11/17 21:12 Dose: 30 mg Furosemide (Lasix -) 40 mg PO DAILY [facility] Last Admin: 05/11/17 10:04 Dose: 40 mg Insulin Aspart (Novolog Vial Sliding Scale -) 1 vial SQ ACHS [facility] PRN Reason: Protocol Last Admin: 05/12/17 06:06 Dose: Not Given Insulin Detemir (Levemir Vial) 20 units SQ AM [facility] Last Admin: 05/12/17 06:06 Dose: 20 units Metoprolol Tartrate (Lopressor -) 37.5 mg PO BID [facility] Last Admin: 05/11/17 21:12 Dose: 37.5 mg Mometasone Furoate (Asmanex 220mcg -) 1 puff IH HS [facility] Last Admin: 05/11/17 21:12 Dose: 1 puff Multi-Ingredient Lotion (Eucerin (Small Jar) -) 1 applic TP DAILY [facility] Last Admin: 05/11/17 10:08 Dose: 1 applic - Objective Vital Signs: Vital Signs Temperature 97.7 F 05/12/17 06:00 Pulse Rate 125 H 05/12/17 06:00 Respiratory Rate 20 05/12/17 06:00 Blood Pressure 125/62 03/13/18 06:00 O2 Sat by Pulse Oximetry (%) 97 05/11/17 20:00 Cardiovascular: Yes: Tachycardia, Pulse Irregular, S1, S2 Respiratory: Yes: Regular, CTA Bilaterally Gastrointestinal: Yes: Normal Bowel Sounds, Soft Labs: CBC, BMP 05/08/17 06:30 05/10/17 06:30 INR, PTT INR 1.25 (0.82-1.09) H 05/08/17 07:30 Problem List - Problems (1) Cellulitis Assessment/Plan: IV ABX ID CONSULT Code(s): L03.90 - CELLULITIS, UNSPECIFIED Qualifiers: Site of cellulitis: other site Qualified Code(s): L03.818 - Cellulitis of other sites (2) Left foot pain Assessment/Plan: ABOVE R/O DVT ORTHO URIC ACID DUPLEX Code(s): M79.672 - PAIN IN LEFT FOOT (3) COPD (chronic obstructive pulmonary disease) Assessment/Plan: NEBS Code(s): J44.9 - CHRONIC OBSTRUCTIVE PULMONARY DISEASE, UNSPECIFIED (4) Edema Assessment/Plan: LASIX 40 qd Code(s): R60.9 - EDEMA, UNSPECIFIED (5) Afib Assessment/Plan: ON ELIQUIS ADD TOPROL XL 25 --increase 50 bid on dig tele Code(s): I48.91 - UNSPECIFIED ATRIAL FIBRILLATION
[2017-05-12] MEDS ORDERED: PT OWN MED DRAWER 7, Y5N ONE (09:59)
[2017-05-12] MEDS: METOPROLOL TARTRATE 50 MG TABLET (FP) PO SCH ×2 (10:04→21:08)
[2017-05-12] MEDS: FUROSEMIDE 40 MG TABLET (FP) PO SCH (10:04)
[2017-05-12] MEDS: COLCHICINE 0.6 MG TABLET (FP) PO SCH (10:04)
[2017-05-12] MEDS: APIXABAN 5 MG TABLET PO SCH ×2 (10:04→21:08)
[2017-05-12] MEDS: ALLOPURINOL 100 MG TABLET (FP) PO SCH (10:04)
[2017-05-12] MEDS: DULoxetine HCL 30 MG CAPSULE.DR (FP) PO SCH ×2 (10:04→21:08)
[2017-05-12] MEDS: ALBUTEROL SO4 18 GM HFA INHALER IH PRN (10:05)
[2017-05-12] MEDS: MINERAL OIL/PETROLAT/WATER TOPICAL CREAM 113 GM JAR TP SCH (10:06)
--- NOTE | 2017-05-12 12:02 | PN ---
Progress Note, Physician Chief Complaint: Patient appears comfortable. He has no chest pain, SOB or palpitation. Tele shows sinus rhythm with very frequent VPCs and APCs. History of Present Illness: 76-year-old man, with a history of diabetes, hypertension, hyperlipidemia, asthma, paroxysmal atrial fibrillation on Eliquis, coronary artery disease, status post CABG, chronic venous stasis, now admitted with leg pains and cellulitis. The patient was in atrial fibrillation on admission. Spontaneously converted to sinus rhythm with very frequent APCs and VPCs. Echocardiogram 05/08/2017 was a technically difficult study. It showed moderate to severe global left ventricular systolic dysfunction, with severe mitral valve regurgitation and moderate tricuspid valve regurgitation. - Current Medication List Current Medications: Active Medications Albuterol Sulfate (Ventolin Hfa Inhaler -) 2 puff IH Q4H PRN PRN Reason: ASTHMA Last Admin: 05/12/17 10:05 Dose: 2 puff Albuterol/Ipratropium (Duoneb -) 1 amp NEB RQID [facility] Last Admin: 05/12/17 08:38 Dose: 1 amp Allopurinol (Zyloprim -) 100 mg PO DAILY [facility] Last Admin: 05/12/17 10:04 Dose: 100 mg Apixaban (Eliquis -) 5 mg PO BID [facility] Last Admin: 05/12/17 10:04 Dose: 5 mg Cephalexin HCl (Keflex -) 500 mg PO TID [facility] Last Admin: 05/12/17 06:05 Dose: 500 mg Colchicine (Colcrys -) 0.6 mg PO DAILY [facility] Last Admin: 05/12/17 10:04 Dose: 0.6 mg Duloxetine HCl (Cymbalta -) 30 mg PO BID [facility] Last Admin: 05/12/17 10:04 Dose: 30 mg Furosemide (Lasix -) 40 mg PO DAILY [facility] Last Admin: 05/12/17 10:04 Dose: 40 mg Insulin Aspart (Novolog Vial Sliding Scale -) 1 vial SQ ACHS [facility] PRN Reason: Protocol Last Admin: 05/12/17 06:06 Dose: Not Given Insulin Detemir (Levemir Vial) 20 units SQ AM [facility] Last Admin: 05/12/17 06:06 Dose: 20 units Metoprolol Tartrate (Lopressor -) 50 mg PO BID [facility] Last Admin: 05/12/17 10:04 Dose: 50 mg Mometasone Furoate (Asmanex 220mcg -) 1 puff IH HS [facility] Last Admin: 05/11/17 21:12 Dose: 1 puff Multi-Ingredient Lotion (Eucerin (Small Jar) -) 1 applic TP DAILY [facility] Last Admin: 05/12/17 10:06 Dose: 1 applic - Objective Vital Signs: Vital Signs Temperature 98.2 F 05/12/17 10:00 Pulse Rate 110 H 05/12/17 10:00 Respiratory Rate 20 05/12/17 10:00 Blood Pressure 127/53 05/12/17 10:00 O2 Sat by Pulse Oximetry (%) 97 05/11/17 20:00 General: Well developed. Well nourished. No acute distress. Head: Normocephalic. Atraumatic, Eyes: PERRLA, EOMI. Sclerae anicteric. Conjunctivae clear. Neck: Supple. No JVD. No bruits. Heart: Normal S1, S2: Regularly irregular rhythm and tachycardic. No murmur. No gallop or rub. Lungs: Symmetrical air entry. Clear to auscultation. No crackle. No wheezing or rhonchi. Abdomen: Soft. Bowel sound positive. Non tender. No masses. Extremities: Trace edema. Venous stasis. No clubbing or cyanosis. PD 2+, equal bilaterally. Neuro: Intact, no focal findings. AAO X3. Labs: CBC, BMP 05/08/17 06:30 05/10/17 06:30 INR, PTT INR 1.25 (0.82-1.09) H 05/08/17 07:30 Assessment/Plan 76-year-old man, with a history of diabetes, hypertension, hyperlipidemia, asthma, paroxysmal atrial fibrillation on Eliquis, coronary artery disease, status post CABG, chronic venous stasis, now admitted with leg pains and cellulitis. The patient was in atrial fibrillation on admission. Spontaneously converted to sinus rhythm with very frequent VPCs and APCs. Echocardiogram 05/08/2017 was a technically difficult study. It showed moderate to severe global left ventricular systolic dysfunction, with severe mitral valve regurgitation and moderate tricuspid valve regurgitation. 1) CAD and systolic CHF -The patient has moderate to severe global left ventricular systolic dysfunction , with severe mitral valve regurgitation. He is well compensated with minimal fluid overload and no acute dyspnea. Unclear acuity of low LVEF and severe mitral regurgitation. Still tachycardic with very frequent VPCs and APCs. Agree to increase metoprolol to 50 mg BID. Continue Lasix 40 mg daily. Will f/u as outpatient after infection treated and see if any further ischemic testing needed 2) Paroxysmal atrial fibrillation: He is in sinus with frequent VPCs and APCs. Titrate up metoprolol as above. Continue tele. Continue Eliquis for stroke prevention.
--- NOTE | 2017-05-12 15:15 | CON.PULM ---
Consult Consult Specialty:: PULMONARY Referred by:: Dr. Ayon Reason for Consultation:: shortness of breath - History of Present Illness Chief Complaint: leg pain History of Present Illness: 76yo male with h/o HTN, DM, paroxysmal atrial fibrillation, CAD s/p CABG, asthma who was admitted with LLE pain. Treated for cellulitis with antibiotics with improvement. Yesterday developed shortness of breath with cough and wheezing. No chest pain or palpitations. No fevers, chills or sweats. Received nebulizer treatment with improvement in symptoms. He is a remote smoker but was diagnosed with asthma as an adult. Never hospitalized or intubated, maintained at home on Symbicort, singulair and albuterol nebs. - History Source History Provided By: Patient, Medical Record Limitations to Obtaining History: No Limitations - Past Medical History Cardio/Vascular: Yes: AFIB, CAD, CHF, HTN, Hyperlipdemia, Mitral Insufficiency Pulmonary: Yes: Asthma, COPD - Alcohol/Substance Use Hx Alcohol Use: No - Smoking History Smoking history: Never smoked Have you smoked in the past 12 months: No Home Medications - Allergies Allergies/Adverse Reactions: Allergies Allergy/AdvReac Type Severity Reaction Status Date / Time No Known Drug Allergies Allergy Verified 05/07/17 18:17 - Home Medications Home Medications: Ambulatory Orders Albuterol Sulfate Inhaler - [Ventolin HFA Inhaler -] 2 inh PO Q4H PRN 05/07/17 Duloxetine HCl [Cymbalta] 30 mg PO BID 05/07/17 Fluticasone Propionate [Flovent Hfa] 220 mcg IH BID 05/07/17 Furosemide [Lasix] 40 mg PO DAILY 05/07/17 Metoprolol Succinate [Toprol Xl] 50 mg PO DAILY 05/07/17 Tadalafil [Cialis] 5 mg PO PRN 05/07/17 Allopurinol [Zyloprim -] 100 mg PO DAILY #30 tablet 05/11/17 Apixaban [Eliquis -] 5 mg PO BID tablet 05/11/17 Cephalexin Monohydrate [Keflex -] 500 mg PO TID #21 capsule 05/11/17 Colchicine [Colcrys -] 0.6 mg PO DAILY #30 tablet 05/11/17 Insulin (Levemir) [Levemir Vial] 20 units SQ AM #5 syringe 05/11/17 Mineral Oil/Petrolat,Wht/Water [Eucerin (Small Jar) -] 1 applic TP DAILY jar traMADol HCL [Ultram -] 50 mg PO Q8H PRN tablet MDD 3 05/11/17 Review of Systems - Review of Systems Constitutional: denies: Chills, Fever Eyes: denies: Recent Change in Vision HENT: denies: Nasal Congestion, Throat Pain Neck: denies: Stiffness, Tenderness Cardiovascular: denies: Chest Pain, Edema, Palpitations, Shortness of Breath Respiratory: reports: Cough, Wheezing. denies: Hemoptysis Gastrointestinal: denies: Abdominal Pain, Nausea, Vomiting Genitourinary: denies: Dysuria, Hematuria Neurological: denies: Dizziness, Headache Endocrine: denies: Unexplained Weight Gain, Unexplained Weight Loss Physical Exam Vital Sings: Vital Signs Temperature 98.0 F 05/12/17 14:40 Pulse Rate 96 H 05/12/17 14:40 Respiratory Rate 20 05/12/17 14:40 Blood Pressure 109/54 05/12/17 14:40 O2 Sat by Pulse Oximetry (%) 97 05/11/17 20:00 Constitutional: Yes: Calm Eyes: Yes: Conjunctiva Clear, EOM Intact HENT: Yes: Atraumatic, Normocephalic Neck: Yes: Supple, Trachea Midline Cardiovascular: Yes: Regular Rate and Rhythm Respiratory: Yes: Diminished (decreased breath sounds at the bases) ...Clubbing: No Gastrointestinal: Yes: Normal Bowel Sounds, Soft. No: Tenderness Extremities: Yes: Other (chronic changes) Edema: No Labs: CBC, BMP 05/08/17 06:30 05/10/17 06:30 Imaging - Results Chest X-ray: Report Reviewed, Image Reviewed (no infiltrates) Problem List - Problems (1) Cellulitis Code(s): L03.90 - CELLULITIS, UNSPECIFIED Qualifiers: Site of cellulitis: other site Qualified Code(s): L03.818 - Cellulitis of other sites (2) COPD (chronic obstructive pulmonary disease) Code(s): J44.9 - CHRONIC OBSTRUCTIVE PULMONARY DISEASE, UNSPECIFIED (3) Asthma Code(s): J45.909 - UNSPECIFIED ASTHMA, UNCOMPLICATED (4) Congestive heart failure with left ventricular systolic dysfunction Code(s): I50.20 - UNSPECIFIED SYSTOLIC (CONGESTIVE) HEART FAILURE (5) Mitral regurgitation Code(s): I34.0 - NONRHEUMATIC MITRAL (VALVE) INSUFFICIENCY (6) Pulmonary hypertension Code(s): I27.20 - PULMONARY HYPERTENSION, UNSPECIFIED (7) Paroxysmal atrial fibrillation Code(s): I48.0 - PAROXYSMAL ATRIAL FIBRILLATION (8) CAD (coronary artery disease) Code(s): I25.10 - ATHSCL HEART DISEASE OF [place] CORONARY ARTERY W/O ANG PCTRS Assessment/Plan Cellulitis Asthma/COPD LV Systolic Dysfunction Mitral Regurgitation Pulmonary HTN Paroxysmal Atrial Fibrillation CAD s/p CABG HTN DM - antibiotics per ID - lasix - rate control with beta shireen - continue anticoagulation - inhaled bronchodilators - appears to have clinically improved with nebs, can defer systemic steroids at this time - O2 as needed to keep SpO2 >90% Thank you for this consult Roque Salter MD
--- NOTE | 2017-05-12 16:04 | PN ---
Progress Note (short form) - Note Progress Note: Pt seen and examined. He is a 76 year old male pt with IDDM and PVD chronic changes in the LE who had L LE cellulitis. He has been on IV antibiotics, and states that now, according to him, the cellulitis has completely resolved. He states he now has no pain, leg is not hot. All the erythema has resolved. LLE is NVI, good ROM throughout Imp LLE cellulitis now resolved Rec Con't IV antibiotics as per PMD and ID No orthopedic intervention needed
[2017-05-12] MEDS: MOMETASONE FUROATE 220 MCG/IH INHALER IH SCH (21:07)
[2017-05-13] MEDS: INSULIN DETEMIR 100 UNITS/ML MDV SQ SCH (06:14)
[2017-05-13] MEDS: INSULIN SLIDING SCALE (NOVOLOG) 1 VIAL SQ SCH ×4 (06:14→22:01)
[2017-05-13] MEDS: CEPHALEXIN MONOHYDRATE 500 MG CAPSULE (UD) PO SCH ×3 (06:14→21:59)
[2017-05-13] MEDS: ALBUTEROL SO4 2.5/IPRATROPIUM 0.5 INH SOL 3 ML VIAL.NEB. NEB SCH ×4 (08:00→20:38)
[2017-05-13] MEDS: FUROSEMIDE 40 MG TABLET (FP) PO SCH (09:44)
[2017-05-13] MEDS: METOPROLOL TARTRATE 50 MG TABLET (FP) PO SCH ×2 (09:44→21:59)
[2017-05-13] MEDS: APIXABAN 5 MG TABLET PO SCH ×2 (09:44→21:59)
[2017-05-13] MEDS: COLCHICINE 0.6 MG TABLET (FP) PO SCH (09:44)
[2017-05-13] MEDS: DULoxetine HCL 30 MG CAPSULE.DR (FP) PO SCH ×2 (09:44→21:59)
[2017-05-13] MEDS: ALLOPURINOL 100 MG TABLET (FP) PO SCH (09:45)
[2017-05-13] MEDS: MINERAL OIL/PETROLAT/WATER TOPICAL CREAM 113 GM JAR TP SCH (09:45)
--- NOTE | 2017-05-13 11:40 | DS ---
Physical Examination Vital Signs: Vital Signs Temperature 98.2 F 05/13/17 09:10 Pulse Rate 115 H 05/13/17 09:10 Respiratory Rate 18 05/13/17 09:10 Blood Pressure 128/74 05/13/17 09:10 O2 Sat by Pulse Oximetry (%) 97 05/13/17 09:00 Findings/Remarks: AWAKE WALKING WITH PT AND WALKER FOR ASSIST Constitutional: Yes: Mild Distress Eyes: Yes: WNL HENT: Yes: WNL Neck: Yes: WNL Cardiovascular: Yes: Tachycardia Respiratory: Yes: WNL Gastrointestinal: Yes: WNL Renal/: Yes: WNL Musculoskeletal: Yes: Muscle Weakness Extremities: Yes: WNL Edema: Yes Edema: LLE: Trace, RLE: Trace Peripheral Pulses WNL: Yes Integumentary: Yes: Erythema Wound/Incision: Yes: Dressing Dry and Intact Neurological: Yes: Pre-Existing Deficit ...Motor Strength: LLE, RLE Psychiatric: Yes: Other Labs: CBC, BMP 05/08/17 06:30 05/10/17 06:30 Discharge Summary Reason For Visit: CELLULITIS Current Active Problems Afib (Acute) Asthma (Acute) CAD (coronary artery disease) (Acute) COPD (chronic obstructive pulmonary disease) (Acute) Cellulitis (Acute) Congestive heart failure with left ventricular systolic dysfunction (Acute) Controlled diabetes mellitus type 2 with complications (Acute) Edema (Acute) Mitral regurgitation (Acute) Paroxysmal atrial fibrillation (Acute) Pulmonary hypertension (Acute) Type 2 diabetes mellitus with diabetic nephropathy (Acute) Procedures: Principal: VASCULAR STUDY/ECHO Hospital Course: TREATED IV ABX FOR CELLULITIS LEGS, WILL NEED PO ABX AND HOME HEALTH AID REFUSING SNF Condition: Improved - Instructions Diet, Activity, Other Instructions: LOW SALT CARDIOLOGY EVAL SEE PMD TOMORROW MORNING FOR LABS AND FOLLOW UP Referrals: Petra Ayon MD [Primary Care Provider] - 1 Week Disposition: VNS/HOME HEALTH CARE - Home Medications Comprehensive Discharge Medication List: Ambulatory Orders Albuterol Sulfate Inhaler - [Ventolin HFA Inhaler -] 2 inh PO Q4H PRN 05/07/17 Duloxetine HCl [Cymbalta] 30 mg PO BID 05/07/17 Fluticasone Propionate [Flovent Hfa] 220 mcg IH BID 05/07/17 Furosemide [Lasix] 40 mg PO DAILY 05/07/17 Metoprolol Succinate [Toprol Xl] 50 mg PO DAILY 05/07/17 Tadalafil [Cialis] 5 mg PO PRN 05/07/17 Allopurinol [Zyloprim -] 100 mg PO DAILY #30 tablet 05/11/17 Apixaban [Eliquis -] 5 mg PO BID tablet 05/11/17 Cephalexin Monohydrate [Keflex -] 500 mg PO TID #21 capsule 05/11/17 Colchicine [Colcrys -] 0.6 mg PO DAILY #30 tablet 05/11/17 Insulin (Levemir) [Levemir Vial] 20 units SQ AM #5 syringe 05/11/17 Mineral Oil/Petrolat,Wht/Water [Eucerin (Small Jar) -] 1 applic TP DAILY jar traMADol HCL [Ultram -] 50 mg PO Q8H PRN tablet MDD 3 05/11/17
--- NOTE | 2017-05-13 14:47 | PN ---
Progress Note, Physician Chief Complaint: Patient appears comfortable. He has no chest pain, SOB or palpitation. Tele shows sinus rhythm with very frequent VPCs and APCs. Average heart rate decreased. History of Present Illness: 76-year-old man, with a history of diabetes, hypertension, hyperlipidemia, asthma, paroxysmal atrial fibrillation on Eliquis, coronary artery disease, status post CABG, chronic venous stasis, now admitted with leg pains and cellulitis. The patient was in atrial fibrillation on admission. Spontaneously converted to sinus rhythm with very frequent APCs and VPCs. Echocardiogram 05/08/2017 was a technically difficult study. It showed moderate to severe global left ventricular systolic dysfunction, with severe mitral valve regurgitation and moderate tricuspid valve regurgitation. - Current Medication List Current Medications: Active Medications Albuterol Sulfate (Ventolin Hfa Inhaler -) 2 puff IH Q4H PRN PRN Reason: ASTHMA Last Admin: 05/12/17 10:05 Dose: 2 puff Albuterol/Ipratropium (Duoneb -) 1 amp NEB RQID [facility] Last Admin: 05/13/17 08:00 Dose: 1 amp Allopurinol (Zyloprim -) 100 mg PO DAILY [facility] Last Admin: 05/13/17 09:45 Dose: 100 mg Apixaban (Eliquis -) 5 mg PO BID [facility] Last Admin: 05/13/17 09:44 Dose: 5 mg Cephalexin HCl (Keflex -) 500 mg PO TID [facility] Last Admin: 05/13/17 14:32 Dose: 500 mg Colchicine (Colcrys -) 0.6 mg PO DAILY [facility] Last Admin: 05/13/17 09:44 Dose: 0.6 mg Duloxetine HCl (Cymbalta -) 30 mg PO BID [facility] Last Admin: 05/13/17 09:44 Dose: 30 mg Furosemide (Lasix -) 40 mg PO DAILY [facility] Last Admin: 05/13/17 09:44 Dose: 40 mg Insulin Aspart (Novolog Vial Sliding Scale -) 1 vial SQ ACHS [facility] PRN Reason: Protocol Last Admin: 05/13/17 11:59 Dose: Not Given Insulin Detemir (Levemir Vial) 20 units SQ AM [facility] Last Admin: 05/13/17 06:14 Dose: 20 units Metoprolol Tartrate (Lopressor -) 50 mg PO BID [facility] Last Admin: 05/13/17 09:44 Dose: 50 mg Mometasone Furoate (Asmanex 220mcg -) 1 puff IH HS [facility] Last Admin: 05/12/17 21:07 Dose: 1 puff Multi-Ingredient Lotion (Eucerin (Small Jar) -) 1 applic TP DAILY [facility] Last Admin: 05/13/17 09:45 Dose: 1 applic - Objective Vital Signs: Vital Signs Temperature 98.4 F 05/13/17 14:00 Pulse Rate 90 05/13/17 14:00 Respiratory Rate 20 05/13/17 14:00 Blood Pressure 114/82 05/13/17 14:00 O2 Sat by Pulse Oximetry (%) 97 05/13/17 09:00 General: Well developed. Well nourished. No acute distress. Head: Normocephalic. Atraumatic, Eyes: PERRLA, EOMI. Sclerae anicteric. Conjunctivae clear. Neck: Supple. No JVD. No bruits. Heart: Normal S1, S2: Regularly irregular rhythm and tachycardic. No murmur. No gallop or rub. Lungs: Symmetrical air entry. Clear to auscultation. No crackle. No wheezing or rhonchi. Abdomen: Soft. Bowel sound positive. Non tender. No masses. Extremities: Trace edema. Venous stasis. No clubbing or cyanosis. PD 2+, equal bilaterally. Neuro: Intact, no focal findings. AAO X3. Labs: CBC, BMP 05/08/17 06:30 05/10/17 06:30 INR, PTT INR 1.25 (0.82-1.09) H 05/08/17 07:30 Assessment/Plan 76-year-old man, with a history of diabetes, hypertension, hyperlipidemia, asthma, paroxysmal atrial fibrillation on Eliquis, coronary artery disease, status post CABG, chronic venous stasis, now admitted with leg pains and cellulitis. The patient was in atrial fibrillation on admission. Spontaneously converted to sinus rhythm with very frequent VPCs and APCs. Echocardiogram 05/08/2017 was a technically difficult study. It showed moderate to severe global left ventricular systolic dysfunction, with severe mitral valve regurgitation and moderate tricuspid valve regurgitation. 1) CAD and systolic CHF -The patient has moderate to severe global left ventricular systolic dysfunction , with severe mitral valve regurgitation. He is well compensated with minimal fluid overload and no acute dyspnea. Unclear acuity of low LVEF and severe mitral regurgitation. Still tachycardic with very frequent VPCs and APCs. Increase metoprolol to 75 mg BID. Continue Lasix 40 mg daily. Will follow as outpatient for further ischemic testing. Plan to discharge the patient tomorrow if his heart rate improves. 2) Paroxysmal atrial fibrillation: He is in sinus with frequent VPCs and APCs. Titrate up metoprolol as above. Continue tele. Continue Eliquis for stroke prevention.
[2017-05-13] MEDS ORDERED: METOPROLOL TARTRATE 25 MG TABLET (FP) PO ONE (15:00)
[2017-05-13] MEDS: MOMETASONE FUROATE 220 MCG/IH INHALER IH SCH (21:58)
[2017-05-14] MEDS: CEPHALEXIN MONOHYDRATE 500 MG CAPSULE (UD) PO SCH ×2 (06:08→13:03)
[2017-05-14] MEDS: INSULIN SLIDING SCALE (NOVOLOG) 1 VIAL SQ SCH ×2 (06:10→11:16)
[2017-05-14] MEDS: INSULIN DETEMIR 100 UNITS/ML MDV SQ SCH (06:11)
[2017-05-14] MEDS ORDERED: INSULIN (NOVOLOG) ASPART 100 UNITS/ML 10ML VIAL ONE (06:39)
[2017-05-14] MEDS: ALBUTEROL SO4 2.5/IPRATROPIUM 0.5 INH SOL 3 ML VIAL.NEB. NEB SCH ×2 (07:20→11:11)
--- NOTE | 2017-05-14 08:27 | DS ---
Physical Examination Vital Signs: Vital Signs Temperature 97.4 F L 05/14/17 06:00 Pulse Rate 88 05/14/17 06:00 Respiratory Rate 19 05/14/17 06:00 Blood Pressure 108/64 05/14/17 06:00 O2 Sat by Pulse Oximetry (%) 95 05/13/17 21:00 Cardiovascular: Yes: Pulse Irregular, S1, S2 Respiratory: Yes: Regular, CTA Bilaterally Gastrointestinal: Yes: Normal Bowel Sounds, Soft Labs: CBC, BMP 05/08/17 06:30 05/10/17 06:30 Discharge Summary Reason For Visit: CELLULITIS Current Active Problems Afib (Acute) Asthma (Acute) CAD (coronary artery disease) (Acute) COPD (chronic obstructive pulmonary disease) (Acute) Cellulitis (Acute) Congestive heart failure with left ventricular systolic dysfunction (Acute) Controlled diabetes mellitus type 2 with complications (Acute) Edema (Acute) Mitral regurgitation (Acute) Paroxysmal atrial fibrillation (Acute) Pulmonary hypertension (Acute) Type 2 diabetes mellitus with diabetic nephropathy (Acute) Hospital Course: - Problems (1) Cellulitis Assessment/Plan: IV ABX ID CONSULT Code(s): L03.90 - CELLULITIS, UNSPECIFIED Qualifiers: Site of cellulitis: other site Qualified Code(s): L03.818 - Cellulitis of other sites (2) Left foot pain Assessment/Plan: ABOVE R/O DVT ORTHO URIC ACID DUPLEX Code(s): M79.672 - PAIN IN LEFT FOOT (3) COPD (chronic obstructive pulmonary disease) Assessment/Plan: NEBS Code(s): J44.9 - CHRONIC OBSTRUCTIVE PULMONARY DISEASE, UNSPECIFIED (4) Edema Assessment/Plan: LASIX 40 qd Code(s): R60.9 - EDEMA, UNSPECIFIED (5) Afib Assessment/Plan: ON ELIQUIS ADD TOPROL XL-TITARTED UP on dig tele per cardio Code(s): I48.91 - UNSPECIFIED ATRIAL FIBRILLATION DC HOME ONCE CLEARED BY CARDIO cardio 76-year-old man, with a history of diabetes, hypertension, hyperlipidemia, asthma, paroxysmal atrial fibrillation on Eliquis, coronary artery disease, status post CABG, chronic venous stasis, now admitted with leg pains and cellulitis. The patient was in atrial fibrillation on admission. Spontaneously converted to sinus rhythm with very frequent VPCs and APCs. Echocardiogram 05/08/2017 was a technically difficult study. It showed moderate to severe global left ventricular systolic dysfunction, with severe mitral valve regurgitation and moderate tricuspid valve regurgitation. 1) CAD and systolic CHF -The patient has moderate to severe global left ventricular systolic dysfunction , with severe mitral valve regurgitation. He is well compensated with minimal fluid overload and no acute dyspnea. Unclear acuity of low LVEF and severe mitral regurgitation. Still tachycardic with very frequent VPCs and APCs. Increase metoprolol to 75 mg BID. Continue Lasix 40 mg daily. Will follow as outpatient for further ischemic testing. Plan to discharge the patient tomorrow if his heart rate improves. 2) Paroxysmal atrial fibrillation: He is in sinus with frequent VPCs and APCs. Titrate up metoprolol as above. Continue tele. Continue Eliquis for stroke prevention. Condition: Improved - Instructions Diet, Activity, Other Instructions: LOW SALT CARDIOLOGY EVAL SEE PMD TOMORROW MORNING FOR LABS AND FOLLOW UP Referrals: Petra Ayon MD [Primary Care Provider] - 1 Week Disposition: VNS/HOME HEALTH CARE - Home Medications Comprehensive Discharge Medication List: Ambulatory Orders Albuterol Sulfate Inhaler - [Ventolin HFA Inhaler -] 2 inh PO Q4H PRN 05/07/17 Fluticasone Propionate [Flovent Hfa] 220 mcg IH BID 05/07/17 Furosemide [Lasix] 40 mg PO DAILY 05/07/17 Metoprolol Succinate [Toprol Xl] 50 mg PO DAILY 05/07/17 Tadalafil [Cialis] 5 mg PO PRN 05/07/17 Allopurinol [Zyloprim -] 100 mg PO DAILY #30 tablet 05/11/17 Apixaban [Eliquis -] 5 mg PO BID tablet 05/11/17 Cephalexin Monohydrate [Keflex -] 500 mg PO TID #21 capsule 05/11/17 Colchicine [Colcrys -] 0.6 mg PO DAILY #30 tablet 05/11/17 Insulin (Levemir) [Levemir Vial] 20 units SQ AM #5 syringe 05/11/17 Mineral Oil/Petrolat,Wht/Water [Eucerin (Small Jar) -] 1 applic TP DAILY jar traMADol HCL [Ultram -] 50 mg PO Q8H PRN tablet MDD 3 05/11/17 Albuterol 2.5/Ipratropium 0.5 [Duoneb -] 1 amp NEB RQID #120 amp 05/13/17 Albuterol Sulfate Inhaler - [Ventolin HFA Inhaler -] 2 puff IH Q4H PRN #1 inhaler 05/13/17 Duloxetine HCl [Cymbalta] 30 mg PO BID #60 capsule. 05/13/17 Furosemide [Lasix -] 40 mg PO DAILY #30 tablet 05/13/17 Metoprolol Tartrate [Lopressor -] 50 mg PO BID #60 tablet 05/13/17 Mometasone Furoate [Asmanex 220Mcg -] 1 puff IH HS #1 inhaler 05/13/17
[2017-05-14] MEDS: DULoxetine HCL 30 MG CAPSULE.DR (FP) PO SCH (10:05)
[2017-05-14] MEDS: FUROSEMIDE 40 MG TABLET (FP) PO SCH (10:05)
[2017-05-14] MEDS: METOPROLOL TARTRATE 50 MG TABLET (FP) PO SCH (10:06)
[2017-05-14] MEDS: APIXABAN 5 MG TABLET PO SCH (10:06)
[2017-05-14] MEDS: COLCHICINE 0.6 MG TABLET (FP) PO SCH (10:07)
[2017-05-14] MEDS: ALLOPURINOL 100 MG TABLET (FP) PO SCH (10:07)
[2017-05-14] MEDS: MINERAL OIL/PETROLAT/WATER TOPICAL CREAM 113 GM JAR TP SCH (10:08)
--- NOTE | 2017-05-14 13:23 | PN ---
Progress Note (short form) - Note Progress Note: Resting in NAD. Some residual cough. No CP or SOB. No acute events overnight. Intake & Output 05/11/17 05/12/17 05/13/17 05/14/17 23:59 23:59 23:59 23:59 Intake Total 800 550 610 120 Output Total 1400 500 400 Balance -600 50 210 120 Last Vital Signs Temp Pulse Resp BP Pulse Ox 97.4 F L 88 19 108/64 95 05/14/17 06:00 05/14/17 06:00 05/14/17 06:00 05/14/17 06:00 05/13/17 21:00 Active Medications Albuterol Sulfate (Ventolin Hfa Inhaler -) 2 puff IH Q4H PRN PRN Reason: ASTHMA Last Admin: 05/12/17 10:05 Dose: 2 puff Albuterol/Ipratropium (Duoneb -) [address] [facility] Last Admin: 05/14/17 11:11 Dose: 1 amp Allopurinol (Zyloprim -) [address] [facility] Last Admin: 05/14/17 10:07 Dose: 100 mg Apixaban (Eliquis -) [address] [facility] Last Admin: 05/14/17 10:06 Dose: 5 mg Cephalexin HCl (Keflex -) [address] [facility] Last Admin: 05/14/17 13:03 Dose: 500 mg Colchicine (Colcrys -) 0.[address] [facility] Last Admin: 05/14/17 10:07 Dose: 0.6 mg Duloxetine HCl (Cymbalta -) [address] [facility] Last Admin: 05/14/17 10:05 Dose: 30 mg Furosemide (Lasix -) [address] [facility] Last Admin: 05/14/17 10:05 Dose: 40 mg Insulin Aspart (Novolog Vial Sliding Scale -) [address] [facility] PRN Reason: Protocol Last Admin: 05/14/17 11:16 Dose: Not Given Insulin Detemir (Levemir Vial) [address] [facility] Last Admin: 05/14/17 06:11 Dose: Not Given Metoprolol Tartrate (Lopressor -) [address] [facility] Last Admin: 05/14/17 10:06 Dose: 75 mg Mometasone Furoate (Asmanex 220mcg -) [address] [facility] Last Admin: 05/13/17 21:58 Dose: 1 puff Multi-Ingredient Lotion (Eucerin (Small Jar) -) [address] [facility] Last Admin: 05/14/17 10:08 Dose: 1 applic Constitutional: Yes: NAD Eyes: Yes: Conjunctiva Clear, EOM Intact HENT: Yes: Atraumatic, Normocephalic Neck: Yes: Supple, Trachea Midline Cardiovascular: Yes: Regular Rate and Rhythm Respiratory: Yes: Diminished at the bases, no wheeze ...Clubbing: No Gastrointestinal: Yes: Normal Bowel Sounds, Soft. No: Tenderness Extremities: Yes: Other (chronic changes) Edema: No Labs: Laboratory Results - last 24 hr 05/13/17 05/13/17 05/14/17 16:30 21:58 06:09 POC Glucometer 131 131 91 05/14/17 11:16 POC Glucometer 111 Problem List - Problems (1) Cellulitis Code(s): L03.90 - CELLULITIS, UNSPECIFIED Qualifiers: Site of cellulitis: other site Qualified Code(s): L03.818 - Cellulitis of other sites (2) COPD (chronic obstructive pulmonary disease) Code(s): J44.9 - CHRONIC OBSTRUCTIVE PULMONARY DISEASE, UNSPECIFIED (3) Asthma Code(s): J45.909 - UNSPECIFIED ASTHMA, UNCOMPLICATED (4) Congestive heart failure with left ventricular systolic dysfunction Code(s): I50.20 - UNSPECIFIED SYSTOLIC (CONGESTIVE) HEART FAILURE (5) Mitral regurgitation Code(s): I34.0 - NONRHEUMATIC MITRAL (VALVE) INSUFFICIENCY (6) Pulmonary hypertension Code(s): I27.20 - PULMONARY HYPERTENSION, UNSPECIFIED (7) Paroxysmal atrial fibrillation Code(s): I48.0 - PAROXYSMAL ATRIAL FIBRILLATION (8) CAD (coronary artery disease) Code(s): I25.10 - ATHSCL HEART DISEASE OF [place] CORONARY ARTERY W/O ANG PCTRS Assessment/Plan Cellulitis Asthma/COPD LV Systolic Dysfunction Mitral Regurgitation Pulmonary HTN Paroxysmal Atrial Fibrillation CAD s/p CABG HTN DM - ABX per ID - Lasix - rate control with beta shireen - AC - BD TX PRN - Monitor off systemic steroids - No Pulmonary contraindication for D/C planning Dr Salvador
--- NOTE | 2017-05-14 14:49 | PN ---
Progress Note, Physician Chief Complaint: Patient appears comfortable. He has no chest pain, SOB or palpitation. Tele shows sinus rhythm with less frequent VPCs and APCs. Average heart rate decreased, but still mild tachycardic. History of Present Illness: 76-year-old man, with a history of diabetes, hypertension, hyperlipidemia, asthma, paroxysmal atrial fibrillation on Eliquis, coronary artery disease, status post CABG, chronic venous stasis, now admitted with leg pains and cellulitis. The patient was in atrial fibrillation on admission. Spontaneously converted to sinus rhythm with very frequent APCs and VPCs. Echocardiogram on 05/08/2017 was a technically difficult study. It showed moderate to severe global left ventricular systolic dysfunction, with severe mitral valve regurgitation and moderate tricuspid valve regurgitation. - Objective Vital Signs: Vital Signs Temperature 98.1 F 05/14/17 10:00 Pulse Rate 100 H 05/14/17 10:00 Respiratory Rate 18 05/14/17 10:00 Blood Pressure 117/90 05/14/17 10:00 O2 Sat by Pulse Oximetry (%) 100 05/14/17 09:00 General: Well developed. Well nourished. No acute distress. Head: Normocephalic. Atraumatic, Eyes: PERRLA, EOMI. Sclerae anicteric. Conjunctivae clear. Neck: Supple. No JVD. No bruits. Heart: Normal S1, S2: Regularly irregular rhythm and mild tachycardic. No murmur. No gallop or rub. Lungs: Symmetrical air entry. Clear to auscultation. No crackle. No wheezing or rhonchi. Abdomen: Soft. Bowel sound positive. Non tender. No masses. Extremities: No edema. Venous stasis. No clubbing or cyanosis. Labs: CBC, BMP 05/08/17 06:30 05/10/17 06:30 INR, PTT INR 1.25 (0.82-1.09) H 05/08/17 07:30 Assessment/Plan 76-year-old man, with a history of diabetes, hypertension, hyperlipidemia, asthma, paroxysmal atrial fibrillation on Eliquis, coronary artery disease, status post CABG, chronic venous stasis, now admitted with leg pains and cellulitis. The patient was in atrial fibrillation on admission. Spontaneously converted to sinus rhythm with very frequent VPCs and APCs. Echocardiogram 05/08/2017 was a technically difficult study. It showed moderate to severe global left ventricular systolic dysfunction, with severe mitral valve regurgitation and moderate tricuspid valve regurgitation. 1) CAD and systolic CHF -The patient has moderate to severe global left ventricular systolic dysfunction , with severe mitral valve regurgitation. He is well compensated with minimal fluid overload and no acute dyspnea. Unclear acuity of low LVEF and severe mitral regurgitation. Still tachycardic with very frequent VPCs and APCs. Continue metoprolol to 75 mg BID. Continue Lasix 40 mg daily. 2) Paroxysmal atrial fibrillation: He is in sinus with frequent VPCs and APCs. Titrate up metoprolol as above. Continue tele. Continue Eliquis for stroke prevention. The patient is stable from cardiac standpoint for discharge. Close out-patient cardiac follow up recommended. The patient should be seen within 1-2 weeks in our office for follow up.
[2017-05-14 16:24] VITALS: BP 125/66; PULSE 59; TEMP 97.5
== END 2017-05-14 14:43 | disposition home health service (06) | DRG 603 ==
LOC: JER 18:02 → JERBED 21:10 → J4S 23:29 → OBSVTOIN 05-10 11:47
PROVIDERS: ADMIT Internal Medicine; ATTEND Family Medicine
DX: L03.119 Cellulitis of unspecified part of limb (principal); I50.20 Unspecified systolic (congestive) heart failure; I25.10 Atherosclerotic heart disease of native coronary artery without angina pectoris; I44.7 Left bundle-branch block, unspecified; I44.0 Atrioventricular block, first degree; J44.9 Chronic obstructive pulmonary disease, unspecified; M79.672 Pain in left foot; I34.0 Nonrheumatic mitral (valve) insufficiency; E11.40 Type 2 diabetes mellitus with diabetic neuropathy, unspecified; I48.0 Paroxysmal atrial fibrillation; I11.0 Hypertensive heart disease with heart failure; I27.20 Pulmonary hypertension, unspecified; E11.65 Type 2 diabetes mellitus with hyperglycemia; R00.0 Tachycardia, unspecified; Z87.891 Personal history of nicotine dependence; Z95.1 Presence of aortocoronary bypass graft
CPT/HCPCS: 36415; 71045-TC-FY; 80048; 80053; 82550; 82962; 83036; 83735; 84100; 84484; 84550; 85025; 85610; 85651; 85730; 86140; 87040; 90715; 93005; 93010; 93306-TC; 93971-TC; 94640; 97116-GP; 97161-GP; 99285-25; G0378; J7620